=== PATIENT | female | born 1965 | race Caucasian/White ===

== ENCOUNTER 2018-02-03 18:10 | Inpatient (IN) | payer MEDICAID, OTHER ==
--- NOTE | 2018-02-03 18:50 | ED PDOC ---
Arrival/HPI - General Time Seen by Provider: 02/03/18 18:21 Historian: Patient - History of Present Illness Narrative History of Present Illness (Text): 02/03/18 18:44 52yo female with pmhx of depression, agrophobia, anxiety referred to [facility] [place] for direct admission from [place]. PAtient was seen at [place] for depression. Patient was accepted by Dr. Hastings for admission. She denies any somatic complaint in ED. Past Medical History - Provider Review Nursing Documentation Reviewed: Yes Family/Social History - Physician Review Nursing Documentation Reviewed: Yes Family/Social History: Unknown Family HX Allergies/Home Meds Allergies/Adverse Reactions: Allergies haloperidol [From Haldol] Adverse Reaction (Verified 02/03/18 20:30) FATIGUE Home Medications: Home Meds Medication Instructions Recorded Confirmed LORazepam [Ativan] 1 mg PO PRN PRN 02/03/18 02/03/18 Zolpidem [Ambien] 10 mg PO HS 02/03/18 02/03/18 clonazePAM [clonAZEPAM] 1 mg PO HS 02/03/18 02/03/18 Review of Systems - Physician Review All systems were reviewed & negative as marked: Yes - Review of Systems Constitutional: Normal Eyes: Normal ENT: Normal Respiratory: Normal Cardiovascular: Normal Gastrointestinal: Normal Genitourinary Female: Normal Musculoskeletal: Normal Skin: Normal Neurological: Normal Endocrine: Normal Hemo/Lymphatic: Normal Psychiatric: Depression Physical Exam Vital Signs Reviewed: Yes Vital Signs Temp Pulse Resp BP Pulse Ox 02/03/18 19:34 80 18 145/84 99 02/03/18 18:45 97.4 F L 81 17 152/98 H 97 Temperature: Afebrile Blood Pressure: Normal Pulse: Regular Respiratory Rate: Normal Appearance: Positive for: Well-Appearing, Non-Toxic, Comfortable Pain Distress: None Mental Status: Positive for: Alert and Oriented X 3 - Systems Exam Head: Present: Atraumatic, Normocephalic Pupils: Present: PERRL Extroacular Muscles: Present: EOMI Conjunctiva: Present: Normal Mouth: Present: Moist Mucous Membranes Neck: Present: Normal Range of Motion Respiratory/Chest: Present: Clear to Auscultation, Good Air Exchange. No: Respiratory Distress, Accessory Muscle Use Cardiovascular: Present: Regular Rate and Rhythm, Normal S1, S2. No: Murmurs Abdomen: No: Tenderness, Distention, Peritoneal Signs Back: Present: Normal Inspection Upper Extremity: Present: Normal Inspection. No: Cyanosis, Edema Lower Extremity: Present: Normal Inspection. No: Edema Neurological: Present: GCS=15, CN II-XII Intact, Speech Normal Skin: Present: Warm, Dry, Normal Color. No: Rashes Psychiatric: Present: Alert, Oriented x 3, Normal Insight, Normal Concentration Medical Decision Making ED Course and Treatment: 02/04/18 01:04 PT was a directed admission for depression, accepted by Dr. Hastings. Her chart was reviewed and per the chart, pt declined chest xray. She denied any somatic complaint in ED and was admitted to Dr. Hastings's service. - Medication Orders Current Medication Orders: Acetaminophen (Tylenol 325mg Tab) 650 mg PO Q4 PRN PRN Reason: Pain, moderate (4-7) Al Hydrox/Mg Hydrox/Simethicone (Maalox Plus 30 Ml) 30 ml PO DAILY PRN PRN Reason: Upset Stomach Clonazepam (Klonopin) 0.5 mg PO TID ASHLEY PRN Reason: Protocol Lorazepam (Ativan) 2 mg PO Q8 PRN; Protocol PRN Reason: severe agitation Last Admin: 02/03/18 21:30 Dose: 2 mg Behavioural Document 02/03/18 21:30 WP (Rec: 02/03/18 21:31 WP [id number]) Maintenance Maintenance Dose Yes Re-Assess: Reassess Psych Meds Document 02/03/18 22:30 WP (Rec: 02/03/18 23:49 WP [id number]) Reassess Psych Med Effective Lorazepam (Ativan) 2 mg IM Q8 PRN; Protocol PRN Reason: Anxiety Magnesium Hydroxide (Milk Of Magnesia) 30 ml PO DAILY PRN PRN Reason: Constipation Zaleplon (Sonata) 5 mg PO HS PRN PRN Reason: Insomnia Ziprasidone (Geodon Cap) 20 mg PO Q8 PRN; Protocol PRN Reason: Anxiety Ziprasidone (Geodon Inj) 20 mg IM Q8 PRN; Protocol PRN Reason: severe agitation Discontinued Medications Zolpidem Tartrate (Ambien) 10 mg PO ONCE ONE PRN Reason: Protocol Stop: 02/03/18 22:01 Last Admin: 02/03/18 21:30 Dose: 10 mg Behavioural Document 02/03/18 21:30 WP (Rec: 02/03/18 21:30 WP [id number]) Maintenance Maintenance Dose Yes Re-Assess: Reassess Psych Meds Document 02/03/18 22:30 WP (Rec: 02/03/18 23:49 WP [id number]) Reassess Psych Med Effective Disposition/Present on Arrival - Present on Arrival Any Indicators Present on Arrival: No History of DVT/PE: No History of Uncontrolled Diabetes: No Urinary Catheter: No History of Decub. Ulcer: No History Surgical Site Infection Following: None - Disposition Have Diagnosis and Disposition been Completed?: Yes Diagnosis: Depression Disposition: HOSPITALIZED Disposition Time: 18:50 Patient Plan: Admission Patient Problems: Current Active Problems Problem Status Onset Depression Acute Condition: STABLE
[2018-02-03] MEDS ORDERED: Alum-Mag Hydrox-Simethicone Susp (30 mL) PO PRN (20:39)
[2018-02-03] MEDS ORDERED: Magnesium Hydroxide Susp 30 ml UD PO PRN (20:39)
[2018-02-03 21:49] VITALS: O2SAT 97; BMI 25.0
--- NOTE | 2018-02-04 02:58 | PCM.BM ---
<Maggie Palomino - Last Filed: 02/04/18 02:56> Treatment Plan Problems - Problems identified on initial assessmt Anxiety Date Initiated: 02/03/18 Time Initiated: 20:00 Assessment reference: NA Status: Active Panic Attack Date Initiated: 02/03/18 Time Initiated: 20:00 Assessment reference: NA Status: Active Priority: 2 Altered Sleep Patterns Date Initiated: 02/03/18 Time Initiated: 20:00 Assessment reference: NA Status: Active Priority: 3 Treatment assets and liabiliti Patient Assests: self-reliant, ADL independent - Milieu Protocol Maintain good personal hygiene: daily Encourage regular showers, daily Remind patient to perform daily oral care, daily Assist patient to perform ADL's Conduct patient checks and document Observation sheet: Q15 minutes Maintain personal safety: every shift Educate patient to report safety concerns to staff, every shift Monitor environment for contraband/sharps Medication safety: Monitor for expected outcome, potential side effects: every shift, Assess barriers to learning: every shift, Assess readiness for medication education: every shift Discharge/Continuing Care - Education Needs Education Needs: Patient Medication, Patient Diagnosis/Disease Process, Patient Coping Skills, Patient Community resources - Discharge Discharge Criteria: Tolerates medication w/o severe side effects, Free of paranoid thoughts, Normal sleep pattern, Ability to care for self <Darling Quintero - Last Filed: 02/04/18 09:03> - Diagnosis (1) MDD (major depressive disorder) Status: Acute Interventions: 02/04/18 09:03 Psychoeducation Psychopharmacology/adjustment of medications as needed/ monitoring possible side effects Evaluate pt on daily basis Compliance with medications and follow up appointments Suicide and homicide risk assessment and prevention Relapse prevention Reduction of symptoms Improve functional status Family involvement As outpatient: cognitive behavioral therapy (2) Panic disorder with agoraphobia Status: Acute Interventions: 02/04/18 09:03 Psychoeducation Psychopharmacology/adjustment of medications as needed/ monitoring possible side effects Evaluate pt on daily basis Discussion of importance of being compliant with medications and follow up appointments Suicide and homicide risk assessment and prevention, coping strategies, safety plan Reduction of symptoms Relaxation techniques and breathing exercises Improve functional status Family involvement Cognitive behavioral therapy as outpatient <Rut Vega Y - Last Filed: 02/04/18 17:25> Family Contact Family involvement: Family/SO is involved Family contact: Patient agrees to contact Family contacted how many times per week?: 2 <Fannie Simpson - Last Filed: 02/07/18 15:45>
[2018-02-04 07:31] LABS: GLUCOSE,FASTING 89 mg/dL (65-110); HDL CHOLESTEROL 39 mg/dL (29-60)
[2018-02-04 07:42] LABS: LDL CHOLESTEROL 170 mg/dL (0-129)
--- NOTE | 2018-02-04 12:46 | CP.PCM.CON ---
History of Present Illness - History of Present Illness History of Present Illness: Babatunde Erickson PGY2 - Neurology Consult Note for Dr. Levi CC: Headache, confusion HPI: Patient is a 52 year old female with past medical history of fibromyalgia, chronic migraine, depression, anxiety who is admitted to inpatient psychiatric unit for depression. Patient admits to having constant headache for the past few weeks. She indicates headache is rated as 10/10. She describes a left temporal pain sensation with radiation to her left shoulder with associated symptoms of nausea, photophobia, sensitivity to sound, occasional blurry vision. Denies loss of vision, weakness, focal deficits, severe worse headache of life symptomology. Patient denies trauma, previous trauma or seizure like activity ever in her past. Patient admits to chronic history of migraines with past usage of Imitrix. 12 point ROS benign other than mentioned in HPI. Review of Systems - Review of Systems All systems: reviewed and no additional remarkable complaints except (as mentioned in HPI) Past Patient History - Infectious Disease Hx of Infectious Diseases: None - Past Social History Smoking Status: Never Smoked Alcohol: None Drugs: Denies - MUSCULOSKELETAL/RHEUMATOLOGICAL Hx Arthritis: Yes - PSYCHIATRIC Hx Substance Use: Yes (medical marijuana) - ANESTHESIA Hx Anesthesia: No Meds Allergies/Adverse Reactions: Allergies Allergy/AdvReac Type Severity Reaction Status Date / Time haloperidol [From Haldol] AdvReac FATIGUE Verified 02/03/18 20:30 - Medications Medications: Current Medications Acetaminophen (Tylenol 325mg Tab) 650 mg PO Q4 PRN PRN Reason: Pain, moderate (4-7) Last Admin: 02/04/18 03:12 Dose: 650 mg Al Hydrox/Mg Hydrox/Simethicone (Maalox Plus 30 Ml) 30 ml PO DAILY PRN PRN Reason: Upset Stomach Duloxetine HCl (Cymbalta) 20 mg PO DAILY ASHLEY Gabapentin (Neurontin) 100 mg PO TID ASHLEY PRN Reason: Protocol Lorazepam (Ativan) 2 mg PO Q8 PRN; Protocol PRN Reason: severe agitation Last Admin: 02/03/18 21:30 Dose: 2 mg Lorazepam (Ativan) 2 mg IM Q8 PRN; Protocol PRN Reason: Anxiety Lorazepam (Ativan) 1 mg PO TID ASHLEY PRN Reason: Protocol Magnesium Hydroxide (Milk Of Magnesia) 30 ml PO DAILY PRN PRN Reason: Constipation Sumatriptan Succinate (Imitrex Tab) 100 mg PO MWF ASHLEY Ziprasidone (Geodon Cap) 20 mg PO Q8 PRN; Protocol PRN Reason: Anxiety Ziprasidone (Geodon Inj) 20 mg IM Q8 PRN; Protocol PRN Reason: severe agitation Physical Exam - Constitutional Appears: No Acute Distress, Unkempt, Older Than Stated Age - Head Exam Head Exam: ATRAUMATIC, NORMAL INSPECTION, NORMOCEPHALIC - Eye Exam Eye Exam: EOMI, PERRL. absent: Nystagmus, Scleral icterus Pupil Exam: absent: Fixed, Irregular, Unequal - ENT Exam ENT Exam: Mucous Membranes Moist - Neck Exam Neck exam: Positive for: Full Rom - Respiratory Exam Respiratory Exam: Clear to Auscultation Bilateral, NORMAL BREATHING PATTERN - Cardiovascular Exam Cardiovascular Exam: REGULAR RHYTHM, +S1, +S2 - GI/Abdominal Exam GI & Abdominal Exam: Normal Bowel Sounds, Soft - Extremities Exam Extremities exam: Negative for: pedal edema, tenderness - Neurological Exam Neurological exam: Alert, CN II-XII Intact, Oriented x3 Additional comments: AAOx3, clear speech visual acuity, field intact Coordination intact, no dysmetria no ataxia, no drift, negative rhomberg Reflexes 2/4 in all four extremities bilaterally - Psychiatric Exam Psychiatric exam: Depressed, Flat Affect - Skin Skin Exam: Dry, Intact Results - Vital Signs Recent Vital Signs: Last Vital Signs Temp 97.7 F 02/04/18 07:05 Pulse 75 02/04/18 07:05 Resp 20 02/04/18 07:05 BP 117/80 02/04/18 07:05 Pulse Ox 97 02/03/18 20:00 - Labs Labs: Laboratory Results - last 24 hr 02/04/18 02/04/18 06:40 06:40 Fasting Glucose 89 Triglycerides 163 H Cholesterol 265 H LDL Cholesterol Direct 170 H HDL Cholesterol 39 TSH 3rd Generation 2.23 Assessment & Plan - Assessment and Plan (Free Text) Assessment: Patient is a 52 year old female with past medical history of fibromyalgia, chronic migraine, depression, anxiety who is admitted to inpatient psychiatric unit for depression. Patient complaining of few week history of headache Plan: Migraine - Chronic migraine history, patient with complaints of some blurry vision, visual vaughan intact - Imitrex 100mg MWF, avoid daily usage secondary to vasodilatory effect - Flexeril 5mg once for tension of left neck/shoulder muscles - ESR, CRP for blurry vision and evaluation of temporal arteritis - Further recs per Dr. Levi Patient examined and case and plan discussed with attending, Dr. Gumreet Erickson PGY2 - Date & Time Date: 02/04/18 Time: 12:46
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
--- NOTE | 2018-02-05 10:19 | PCM.PYCHPN ---
Psychiatric Progress Note - Psychiatric Progress Note Patient seen today, length of contact: 25 min Problems Identified/Issues Discussed: I reviewed assessment and recent notes. I met with patient multiple times this morning. She appears anxious and unhappy. Reports that she is "very very depressed" and feels likes she is "losing my mind" because she hasn't been able to sleep. Patient indicates that her roommate has been disruptive and noisy overnight. Patient remains somatic and reports getting medical marijuana prescribed for her pain and nausea. She inquires about tramadol again. Patient is tolerating her current medications however requests seroquel for insomnia, anxiety and mood control as it has been beneficial in the past. Thought somatic, patient denies any NEW discomfort or pain at this time. Patient has been isolative and spends most of her time in her room. She does not social with other patients, she spends most of her focus on complaints. Patient remains unpredictable. Diagnostic Results: rule out major depressive disorder Rule out panic disorder with agoraphobia Rule out borderline personality disorder Rule out fibromyalgia Rule out addition to benzodiazepines and hypnotics Medication Change: Yes (seroquel 25 mg po HS initiated for mood control) Medical Record Reviewed: Yes Mental Status Examination - Cognitive Function Orientation: Person - Mood Mood: Depressed, Anxious - Affect Affect: Constricted, Flat - Formal Thought Process Formal Thought Process: Circumstantial Goal/Treatment Plan - Goal/Treatment Plan Progress Toward Problem(s) and Goals/Treatment Plan: - * c/w current tx and plan * Medical consultation for complaints of pain * seroquel 25 mg po HS initiated for mood control and off-label for insomnia * New weekend lab noted below: 02/05/18 07:40 ESR 13 * Vitals reviewed and noted below: Selected Entries 02/05/18 06:46 Temperature 98.0 F Pulse Rate 67 Respiratory 20 Rate Blood Pressure 102/58 L * Ativan 1 mg 3 times a day scheduled with plan to wean it off
--- NOTE | 2018-02-06 10:02 | PCM.PYCHPN ---
Psychiatric Progress Note - Psychiatric Progress Note Patient seen today, length of contact: 25 min Patient Chief Complaint: "very very depressed" Problems Identified/Issues Discussed: I reviewed recent notes and met with patient at bedside. She is a little calmer today but still can be dramatic about her mental and physical distress. She appears anxious and unhappy but doesn't appear to be in acute physical discomfort. Still reports that she is "very very depressed". Thought process is scattered but not overly disorganized. Denies perceptual disturbance. Patient is tolerating her current medications. Sleep was still restless sleep s/ p initiation of seroquel yesterday for insomnia, anxiety and mood control. Patient has been a little more visible on the unit but not very interactive. There were no major behavioral issues overnight. Diagnostic Results: rule out major depressive disorder Rule out panic disorder with agoraphobia Rule out borderline personality disorder Rule out fibromyalgia Rule out addition to benzodiazepines and hypnotics Medication Change: Yes (Seroquel increased to 50 mg HS) Medical Record Reviewed: Yes Mental Status Examination - Cognitive Function Orientation: Person, Place Attention: Poor Concentration: Poor Association: Loose - Mood Mood: Depressed, Anxious - Affect Affect: Constricted, Flat - Formal Thought Process Formal Thought Process: Circumstantial - Suicidal Ideation Suicidal Ideation: No - Homicidal Ideation Homicidal Ideation: No Goal/Treatment Plan - Goal/Treatment Plan Progress Toward Problem(s) and Goals/Treatment Plan: - * c/w current tx and plan * Medical consultation requested for complaints of pain * Seroquel increased to 50 mg po HS on 02/06/18 for mood control and off-label for insomnia * New weekend lab noted below: 02/05/18 07:40 ESR 13 * Vitals reviewed and noted below: 02/05/18 02/05/18 06:46 16:00 Temperature 98.0 F Pulse Rate 67 66 Respiratory 20 Rate Blood Pressure 102/58 L 118/81 * Ativan 1 mg 3 times a day scheduled with plan to wean it off as patient's mood and behavior become calmer and more stable
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
--- NOTE | 2018-02-08 11:31 | PCM.PYCHPN ---
<Caity Contreras - Last Filed: 02/08/18 13:11> Psychiatric Progress Note - Psychiatric Progress Note Patient seen today, length of contact: 30 min Patient Chief Complaint: Im still very anxious. I feel groggy, too much Ambien. I also feel nausea. Problems Identified/Issues Discussed: Suicide/ homicide prevention, past psychiatric h/o, current psychiatric symptoms , medical problems, risk/benefits and alternatives of medications, medications compliance, coping strategies, substance abuse h/o, relapse prevention, importance of follow up with psychiatrist and therapist, discharge plan. Medical Problems: Patient has many somatic complaints, including hip pain, headache, and GI upset. ?psoriatic arthritis h/o trigeminal neuralgia Diagnostic Results: Vital Signs Temp Pulse Resp BP Pulse Ox 02/07/18 07:43 97.5 F L 69 20 111/58 L 02/06/18 16:14 81 114/74 02/06/18 07:51 97.9 F 77 20 93/61 L 02/06/18 07:47 97.9 F 77 20 02/05/18 16:00 66 118/81 02/05/18 06:46 98.0 F 67 20 102/58 L 02/04/18 16:00 73 125/79 02/04/18 07:05 97.7 F 75 20 117/80 02/03/18 20:00 98.4 F 80 18 147/100 H 97 02/03/18 19:34 80 18 145/84 99 02/03/18 18:45 97.4 F L 81 17 152/98 H 97 Lab Results 02/05/18 12:35: POC Glucose (mg/dL) 97 02/05/18 07:40: ESR 13 02/04/18 11:15: C-Reactive Protein 5.10 02/04/18 06:40: RPR Nonreactive 02/04/18 06:40: TSH 3rd Generation 2.23 02/04/18 06:40: Fasting Glucose 89, Triglycerides 163 H, Cholesterol 265 H, LDL Cholesterol Direct 170 H, HDL Cholesterol 39 DSM 5 Symptoms Update: Shirley Schumacher is 52 y/o Irish female with a questionable history of mental illness, self-reported history of anxiety with agoraphobia, who came to the hospital with her reporting having feelings of depression, loneliness, inability to function, worsening of anxiety. 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 Patient is seen in the dining room. She speaks with a soft, low tone voice. She is complaining of grogginess. She still appears disheveled with poor grooming. She reports her came to visit her, but she does not have any details. She says she still feels confused and anxious. She has attended some groups with minimal active participation. She is still isolating in her bed most of the day. At times, she is seen pacing slowly in the hallways. She continues to have a very flat affect. She does not have as many somatic complaints as from when she was first admitted. The patient is compliant with her medications and is tolerating them well without any side effects. She is able to contract for safety and denies SI. Patient was encouraged to get out of room and attempt to occupy her mind. Medication Change: Yes (decreased Ambien, increased Seroquel, increased Cymbalta ) Medical Record Reviewed: Yes Consults ordered or reviewed: neurology Mental Status Examination - Cognitive Function Orientation: Person, Place, Situation, Time Memory: Intact Attention: Poor Concentration: Poor Association: Loose Fund of Knowledge: Poor Decription of patient's judgement and insights: fair insight and judgment - Mood Mood: Depressed, Anxious - Affect Affect: Constricted, Flat - Speech Speech: Soft - Formal Thought Process Formal Thought Process: Circumstantial (provides unnecessary details) - Suicidal Ideation Suicidal Ideation: No - Homicidal Ideation Homicidal Ideation: No Goal/Treatment Plan - Goal/Treatment Plan Need for Continued Stay: Remain at risks for inpatient hospitalization, Severe depression anxiety, Discharge may exacerbated symptoms, Severe functional impairment Progress Toward Problem(s) and Goals/Treatment Plan: 1. Cymbalta 50 mg daily for mood, anxiety, and pain 2. Ativan 1 mg tid for anxiety and withdrawal 3. Gabapentin 300 mg tid for mood and anxiety 4. Seroquel 100 mg qhs for mood and sleep 5. Geodon 20 mg q8hrs prn for anxiety/agitation- patient has not required 6. Ambien 5 mg qhs prn for sleep 7. Neurology consult for headache, confusion - Flexeril once - Sumatriptan 100 mg 3x/day - ESR 13, CRP 5.1 (wnl)- r/o temporal arteritis Milieu and group therapy Family involvement () SW consult for discharge planning Estimated Date of D/C: 02/11/18 (will continue to monitor) - Smoking Cessation Smoking Cessation Initiated: No Reason for not providing: Patient denies tobacco use. <Darling Quintero - Last Filed: 02/08/18 13:59> Psychiatric Progress Note - Psychiatric Progress Note DSM 5 Symptoms Update: pt was seen today discussed with Chief Nurse Anesthetist and treatment team, self isolating, nonspecific complaints "I am scared, that it is too late for me to get better", pt said that "I feel my brain is not functioning", pt is afraid that she will never get better. pt agreed to increase dose of cymbalta, seroquel increased. patient tolerates medication well, no side effects observed or reported, AIMS 0 , no EPS. as per staff pt is depressed, not agitated or aggressive. impression: DSM 5 Diagnosis: rule out major depressive disorder Rule out panic disorder with agoraphobia Rule out borderline personality disorder Rule out fibromyalgia Rule out addition to benzodiazepines and hypnotics Goal/Treatment Plan - Goal/Treatment Plan Progress Toward Problem(s) and Goals/Treatment Plan: gabapentin d/c agree with assessment and plan
--- NOTE | 2018-02-09 13:28 | PCM.PYCHPN ---
<Caity Contreras - Last Filed: 02/09/18 13:29> Psychiatric Progress Note - Psychiatric Progress Note Patient seen today, length of contact: 30 min Patient Chief Complaint: I still dont feel good. Its like Im detached, and its scary. My heart and mind. Its like physical but really mental. Its like I cannot connect. Problems Identified/Issues Discussed: Suicide/ homicide prevention, past psychiatric h/o, current psychiatric symptoms , medical problems, risk/benefits and alternatives of medications, medications compliance, coping strategies, substance abuse h/o, relapse prevention, importance of follow up with psychiatrist and therapist, discharge plan. Medical Problems: Patient has many somatic complaints, including hip pain, headache, and GI upset. ?psoriatic arthritis h/o trigeminal neuralgia Diagnostic Results: Vital Signs Temp Pulse Resp BP Pulse Ox 02/07/18 07:43 97.5 F L 69 20 111/58 L 02/06/18 16:14 81 114/74 02/06/18 07:51 97.9 F 77 20 93/61 L 02/06/18 07:47 97.9 F 77 20 02/05/18 16:00 66 118/81 02/05/18 06:46 98.0 F 67 20 102/58 L 02/04/18 16:00 73 125/79 02/04/18 07:05 97.7 F 75 20 117/80 02/03/18 20:00 98.4 F 80 18 147/100 H 97 02/03/18 19:34 80 18 145/84 99 02/03/18 18:45 97.4 F L 81 17 152/98 H 97 Lab Results 02/05/18 12:35: POC Glucose (mg/dL) 97 02/05/18 07:40: ESR 13 02/04/18 11:15: C-Reactive Protein 5.10 02/04/18 06:40: RPR Nonreactive 02/04/18 06:40: TSH 3rd Generation 2.23 02/04/18 06:40: Fasting Glucose 89, Triglycerides 163 H, Cholesterol 265 H, LDL Cholesterol Direct 170 H, HDL Cholesterol 39 Temp Pulse Resp BP Pulse Ox 97.8 F 64 20 111/71 97 02/09/18 07:13 02/09/18 07:13 02/09/18 07:13 02/09/18 07:13 02/03/18 20:00 DSM 5 Symptoms Update: Shirley Schumacher is 52 y/o [place] female with a questionable history of mental illness, self-reported history of anxiety with agoraphobia, who came to the hospital with her reporting having feelings of depression, loneliness, inability to function, worsening of anxiety. 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 Patient is seen in the conference room with SW. She speaks with a soft, low tone voice. She has a very flat affect. She still appears disheveled with poor grooming- hospital gown, unwashed hair. She reports yesterday was ok, but today she is feeling badly again. She has difficulty describing what she is feeling. She says she is anxious and feels detached. She asks for more Ambien, but it was explained to her that the dose was decreased due to her feeling groggy the day prior. Discussed having a family meeting with the patients , and she is agreeable. She has attended some groups with minimal active participation. She is still isolating in her room. At times, she is seen pacing slowly in the hallways. The patient is compliant with her medications and is tolerating them well without any side effects. She is able to contract for safety and denies SI. Impression: Rule out addiction to benzodiazepines and hypnotics Rule out major depressive disorder Rule out panic disorder with agoraphobia Rule out borderline personality disorder Rule out fibromyalgia Medication Change: Yes (added Wellbutrin, increased Seroquel) Medical Record Reviewed: Yes Consults ordered or reviewed: neurology Mental Status Examination - Cognitive Function Orientation: Person, Place, Situation, Time Memory: Intact Attention: Poor Concentration: Poor Association: Loose Fund of Knowledge: Poor Decription of patient's judgement and insights: fair insight and judgment - Mood Mood: Depressed, Anxious - Affect Affect: Constricted, Flat - Speech Speech: Soft - Formal Thought Process Formal Thought Process: Loosening of associations, Circumstantial - Suicidal Ideation Suicidal Ideation: No - Homicidal Ideation Homicidal Ideation: No Goal/Treatment Plan - Goal/Treatment Plan Need for Continued Stay: Remain at risks for inpatient hospitalization, Severe depression anxiety, Discharge may exacerbated symptoms, Severe functional impairment Progress Toward Problem(s) and Goals/Treatment Plan: 1. Cymbalta 50 mg daily for mood, anxiety, and pain 2. Ativan 1 mg tid for anxiety and withdrawal 3. Wellbutrin 75 mg daily for depression 4. Gabapentin 300 mg tid for mood and anxiety 5. Seroquel 150 mg qhs for mood and sleep 6. Geodon 20 mg q8hrs prn for anxiety/agitation- patient has not required 7. Ambien 5 mg qhs prn for sleep- requires daily 8. Neurology consult for headache, confusion- signed off - Flexeril once - Sumatriptan 100 mg 3x/day - ESR 13, CRP 5.1 (wnl)- r/o temporal arteritis Milieu and group therapy Family involvement ()- tentative family meeting next 02/15 consult for discharge planning Estimated Date of D/C: 02/16/18 If changed, why: multiple medication changes, continuing to monitor - Smoking Cessation Smoking Cessation Initiated: No Reason for not providing: Patient denies tobacco use. <Darling Quintero - Last Filed: 02/09/18 15:11> Psychiatric Progress Note - Psychiatric Progress Note DSM 5 Symptoms Update: patient was seen with international relations teacher, increasing up with assessment and plan Goal/Treatment Plan - Goal/Treatment Plan Progress Toward Problem(s) and Goals/Treatment Plan: agreed with assessment and plan
--- NOTE | 2018-02-10 15:10 | PCM.PYCHPN ---
Psychiatric Progress Note - Psychiatric Progress Note Patient seen today, length of contact: 30 min Patient Chief Complaint: ""oh, my knees are hurting, it is like a devil, can you increase my ambien?". Problems Identified/Issues Discussed: Suicide/ homicide prevention, past psychiatric h/o, current psychiatric symptoms , medical problems, risk/benefits and alternatives of medications, medications compliance, coping strategies, substance abuse h/o, relapse prevention, importance of follow up with psychiatrist and therapist, discharge plan. Medical Problems: see HPI Diagnostic Results: Lab Results 02/05/18 12:35: POC Glucose (mg/dL) 97 02/05/18 07:40: ESR 13 02/04/18 11:15: C-Reactive Protein 5.10 02/04/18 06:40: RPR Nonreactive 02/04/18 06:40: TSH 3rd Generation 2.23 02/04/18 06:40: Fasting Glucose 89, Triglycerides 163 H, Cholesterol 265 H, LDL Cholesterol Direct 170 H, HDL Cholesterol 39 Vital Signs Temp Pulse Resp BP Pulse Ox 02/10/18 13:05 97.4 F L 02/10/18 07:11 97.7 F 55 L 20 91/56 L 02/09/18 16:00 56 L 126/83 02/09/18 07:13 97.8 F 64 20 111/71 02/08/18 16:00 68 123/78 02/08/18 07:04 97.9 F 64 18 115/77 02/07/18 07:43 97.5 F L 69 20 111/58 L 02/06/18 16:14 81 114/74 02/06/18 07:51 97.9 F 77 20 93/61 L 02/06/18 07:47 97.9 F 77 20 02/05/18 16:00 66 118/81 02/05/18 06:46 98.0 F 67 20 102/58 L 02/04/18 16:00 73 125/79 02/04/18 07:05 97.7 F 75 20 117/80 02/03/18 20:00 98.4 F 80 18 147/100 H 97 02/03/18 19:34 80 18 145/84 99 02/03/18 18:45 97.4 F L 81 17 152/98 H 97 DSM 5 Symptoms Update: Shirley Schumacher is 52 y/o [place] female with a questionable history of mental illness, self-reported history of anxiety with agoraphobia, who came to the hospital with her reporting having feelings of depression, loneliness, inability to function, worsening of anxiety. 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 Patient is seen in the hallway together with medical student. She speaks with a soft, low tone voice. She has a very flat affect, but some positive changes with hygiene, pt washed her hair, has some lip gloss, ponytail, pt was observed participating in groups. pt still has multiple psychosomatic complaints, pt said that "oh, my knees are hurting, it is like a devil, can you increase my ambien?". She has difficulty describing what she is feeling. She says she is anxious and feels detached. Discussed having a family meeting with the patients , and she is agreeable. as per staff pt is more visible in the unit. The patient is compliant with her medications and is tolerating them well without any side effects AIMS 0, no EPS. She is able to contract for safety and denies SI but reported feeling of hopelessness "I am afraid that I will never get better". Impression: Rule out addiction to benzodiazepines and hypnotics Rule out major depressive disorder Rule out panic disorder with agoraphobia Rule out borderline personality disorder Rule out fibromyalgia Medication Change: Yes (Wellbutrin increased,Cymbalta increased) Medical Record Reviewed: Yes Consults ordered or reviewed: patient was seen by neurologist, consultation appreciated Mental Status Examination - Cognitive Function Orientation: Person, Place, Situation, Time Memory: Intact Attention: Poor Concentration: Poor Association: Loose Fund of Knowledge: Poor - Mood Mood: Depressed, Anxious - Affect Affect: Constricted, Flat - Speech Speech: Soft - Formal Thought Process Formal Thought Process: Loosening of associations, Circumstantial, Other (pt has fdifficulties to stay focused and concentrate) - Suicidal Ideation Suicidal Ideation: No - Homicidal Ideation Homicidal Ideation: No Goal/Treatment Plan - Goal/Treatment Plan Need for Continued Stay: Remain at risks for inpatient hospitalization, Severe depression anxiety, Discharge may exacerbated symptoms, Severe functional impairment Progress Toward Problem(s) and Goals/Treatment Plan: 1. Cymbalta 30mg po bid for mood, anxiety, and pain 2. Ativan 1 mg tid for anxiety and withdrawal 3. Wellbutrin 75 mg po bid for depression 4. Gabapentin was d/c 5. Seroquel 150 mg qhs for mood and sleep 6. Geodon 20 mg q8hrs prn for anxiety/agitation- patient has not required 7. Ambien 10 mg qhs prn for sleep- requires daily 8. Neurology consult for headache, confusion- signed off - Flexeril once - Sumatriptan 100 mg 3x/day - ESR 13, CRP 5.1 (wnl)- r/o temporal arteritis Milieu and group therapy Family involvement ()- tentative family meeting next 02/15 ANANTH consult for discharge planning Estimated Date of D/C: 02/16/18
--- NOTE | 2018-02-11 14:00 | PCM.PYCHPN ---
Psychiatric Progress Note - Psychiatric Progress Note Patient seen today, length of contact: 30 min Patient Chief Complaint: "I had a good day yesterday, but I am always hungry, can you decrease my seroquel?" Problems Identified/Issues Discussed: Suicide/ homicide prevention, past psychiatric h/o, current psychiatric symptoms , medical problems, risk/benefits and alternatives of medications, medications compliance, coping strategies, substance abuse h/o, relapse prevention, importance of follow up with psychiatrist and therapist, discharge plan. Medical Problems: see HPI Diagnostic Results: Lab Results 02/05/18 12:35: POC Glucose (mg/dL) 97 02/05/18 07:40: ESR 13 02/04/18 11:15: C-Reactive Protein 5.10 02/04/18 06:40: RPR Nonreactive 02/04/18 06:40: TSH 3rd Generation 2.23 02/04/18 06:40: Fasting Glucose 89, Triglycerides 163 H, Cholesterol 265 H, LDL Cholesterol Direct 170 H, HDL Cholesterol 39 Vital Signs Temp Pulse Resp BP Pulse Ox 02/10/18 13:05 97.4 F L 02/10/18 07:11 97.7 F 55 L 20 91/56 L 02/09/18 16:00 56 L 126/83 02/09/18 07:13 97.8 F 64 20 111/71 02/08/18 16:00 68 123/78 02/08/18 07:04 97.9 F 64 18 115/77 02/07/18 07:43 97.5 F L 69 20 111/58 L 02/06/18 16:14 81 114/74 02/06/18 07:51 97.9 F 77 20 93/61 L 02/06/18 07:47 97.9 F 77 20 02/05/18 16:00 66 118/81 02/05/18 06:46 98.0 F 67 20 102/58 L 02/04/18 16:00 73 125/79 02/04/18 07:05 97.7 F 75 20 117/80 02/03/18 20:00 98.4 F 80 18 147/100 H 97 02/03/18 19:34 80 18 145/84 99 02/03/18 18:45 97.4 F L 81 17 152/98 H 97 DSM 5 Symptoms Update: Shirley Ciamaga is 52 y/o [place]ames[place] female with a questionable history of mental illness, self-reported history of anxiety with agoraphobia, who came to the hospital with her reporting having feelings of depression, loneliness, inability to function, worsening of anxiety. 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 Patient is seen at the treatment team meeting, patient presented with same unspecific complaints "pain all over my body", pt said that "yesterday was a good day", pt reported that her mood is "better", when pt is making positive statements it is always "yes, but I have pain", "yes I feel better yesterday, but I was feeing not good at the morning". She speaks with a soft, low tone voice. She has a very flat affect, but some positive changes with hygiene, pt washed her hair, has some lip gloss, ponytail, pt was observed participating in groups. She has difficulty describing what she is feeling. She says she is anxious and feels detached. Discussed having a family meeting with the patients , and she is agreeable. as per staff pt is more visible in the unit. The patient is compliant with her medications and is tolerating them well without any side effects AIMS 0, no EPS. She is able to contract for safety and denies SI but reported feeling of hopelessness "I am afraid that I will never get better". Impression: Rule out addiction to benzodiazepines and hypnotics Rule out major depressive disorder Rule out panic disorder with agoraphobia Rule out borderline personality disorder Rule out fibromyalgia Medication Change: Yes (Wellbutrin increased,Cymbalta increased) Medical Record Reviewed: Yes Mental Status Examination - Cognitive Function Orientation: Person, Place, Situation, Time Memory: Intact Attention: Poor (some improvement) Concentration: Poor (some improvement) Association: WNL Fund of Knowledge: Poor - Mood Mood: Depressed (some improvement), Anxious - Affect Affect: Constricted - Speech Speech: Soft - Formal Thought Process Formal Thought Process: Loosening of associations, Circumstantial, Other (pt has fdifficulties to stay focused and concentrate) - Suicidal Ideation Suicidal Ideation: No - Homicidal Ideation Homicidal Ideation: No Goal/Treatment Plan - Goal/Treatment Plan Need for Continued Stay: Remain at risks for inpatient hospitalization, Severe depression anxiety, Discharge may exacerbated symptoms, Severe functional impairment Progress Toward Problem(s) and Goals/Treatment Plan: 1. Cymbalta 30mg po bid for mood, anxiety, and pain 2. Ativan 1 mg tid for anxiety and withdrawal 3. Wellbutrin 75 mg po bid for depression 4. Gabapentin was d/c 5. Seroquel 100 mg qhs for mood and sleep 6. Geodon 20 mg q8hrs prn for anxiety/agitation- patient has not required 7. Ambien 10 mg qhs prn for sleep- requires daily 8. Neurology consult for headache, confusion- signed off - Flexeril once - Sumatriptan 100 mg 3x/day - ESR 13, CRP 5.1 (wnl)- r/o temporal arteritis Milieu and group therapy Family involvement ()- tentative family meeting next 02/15 consult for discharge planning Pt was educated about risk/benefits and alternatives of medications, coping strategies (safety plan, suicide prevention), relapse prevention, importance of follow up with psychiatrist and therapist, stay away from drugs/alcohol/smoking Estimated Date of D/C: 02/16/18
[2018-02-12] MEDS: Pantoprazole 20 mg EC Tab PO SCH (09:02)
--- NOTE | 2018-02-12 12:58 | PCM.PYCHPN ---
Psychiatric Progress Note - Psychiatric Progress Note Patient seen today, length of contact: 30 min Patient Chief Complaint: "I do not know, I have some numbness all over in my body, I had that before, I also have dizziness, can you raise my ativan?" Problems Identified/Issues Discussed: Suicide/ homicide prevention, past psychiatric h/o, current psychiatric symptoms , medical problems, risk/benefits and alternatives of medications, medications compliance, coping strategies, substance abuse h/o, relapse prevention, importance of follow up with psychiatrist and therapist, discharge plan. Medical Problems: see HPI Diagnostic Results: Lab Results 02/05/18 12:35: POC Glucose (mg/dL) 97 02/05/18 07:40: ESR 13 02/04/18 11:15: C-Reactive Protein 5.10 02/04/18 06:40: RPR Nonreactive 02/04/18 06:40: TSH 3rd Generation 2.23 02/04/18 06:40: Fasting Glucose 89, Triglycerides 163 H, Cholesterol 265 H, LDL Cholesterol Direct 170 H, HDL Cholesterol 39 Vital Signs Temp Pulse Resp BP Pulse Ox 02/10/18 13:05 97.4 F L 02/10/18 07:11 97.7 F 55 L 20 91/56 L 02/09/18 16:00 56 L 126/83 02/09/18 07:13 97.8 F 64 20 111/71 02/08/18 16:00 68 123/78 02/08/18 07:04 97.9 F 64 18 115/77 02/07/18 07:43 97.5 F L 69 20 111/58 L 02/06/18 16:14 81 114/74 02/06/18 07:51 97.9 F 77 20 93/61 L 02/06/18 07:47 97.9 F 77 20 02/05/18 16:00 66 118/81 02/05/18 06:46 98.0 F 67 20 102/58 L 02/04/18 16:00 73 125/79 02/04/18 07:05 97.7 F 75 20 117/80 02/03/18 20:00 98.4 F 80 18 147/100 H 97 02/03/18 19:34 80 18 145/84 99 02/03/18 18:45 97.4 F L 81 17 152/98 H 97 Temp Pulse Resp BP Pulse Ox 98.2 F 56 L 20 102/64 97 02/12/18 07:25 02/12/18 07:25 02/12/18 07:25 02/12/18 07:25 02/03/18 20:00 DSM 5 Symptoms Update: Shirley Schumacher is 52 y/o [place] female with a questionable history of mental illness, self-reported history of anxiety with agoraphobia, who came to the hospital with her reporting having feelings of depression, loneliness, inability to function, worsening of anxiety. 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 Patient is seen in her room, pt presented the same way, multiple nonspecific complaints "dizziness, hard to explain, numbness, tingling, heaviness in my head ". She speaks with a soft, low tone voice. She has a very flat affect, but some positive changes with hygiene,took a shower, pt was observed participating in groups. She has difficulty describing what she is feeling. She says she is anxious and feels detached. Discussed having a family meeting with the patients , and she is agreeable. as per staff pt is more visible in the unit. The patient is compliant with her medications and is tolerating them well without any side effects AIMS 0, no EPS. She is able to contract for safety and denies SI but reported feeling of hopelessness "I am afraid that I will never get better". Impression: Rule out addiction to benzodiazepines and hypnotics Rule out major depressive disorder Rule out panic disorder with agoraphobia Rule out borderline personality disorder Rule out fibromyalgia Medication Change: No (increased yesterday) Medical Record Reviewed: Yes Consults ordered or reviewed: patient was seen by neurologist, consultation appreciated Mental Status Examination - Cognitive Function Orientation: Person, Place, Situation, Time Memory: Intact Attention: Poor (some improvement) Concentration: Poor (some improvement) Association: WNL Fund of Knowledge: Poor - Mood Mood: Depressed (some improvement), Anxious - Affect Affect: Constricted - Speech Speech: Soft - Formal Thought Process Formal Thought Process: Loosening of associations, Circumstantial, Other (pt has fdifficulties to stay focused and concentrate) - Suicidal Ideation Suicidal Ideation: No - Homicidal Ideation Homicidal Ideation: No Goal/Treatment Plan - Goal/Treatment Plan Need for Continued Stay: Remain at risks for inpatient hospitalization, Severe depression anxiety, Discharge may exacerbated symptoms, Severe functional impairment Progress Toward Problem(s) and Goals/Treatment Plan: 1. Cymbalta 30mg po bid for mood, anxiety, and pain 2. Ativan 1 mg tid for anxiety and withdrawal 3. Wellbutrin 75 mg po bid for depression 4. Gabapentin was d/c 5. Seroquel 100 mg qhs for mood and sleep 6. Geodon 20 mg q8hrs prn for anxiety/agitation- patient has not required 7. Ambien 10 mg qhs prn for sleep- requires daily 8. Neurology consult for headache, confusion- signed off - Flexeril once - Sumatriptan 100 mg 3x/day - ESR 13, CRP 5.1 (wnl)- r/o temporal arteritis Milieu and group therapy Family involvement ()- tentative family meeting next 02/15 consult for discharge planning Pt was educated about risk/benefits and alternatives of medications, coping strategies (safety plan, suicide prevention), relapse prevention, importance of follow up with psychiatrist and therapist, stay away from drugs/alcohol/smoking Estimated Date of D/C: 02/16/18
[2018-02-13] MEDS: Pantoprazole 20 mg EC Tab PO SCH (06:00)
--- NOTE | 2018-02-13 10:20 | PCM.PYCHPN ---
Psychiatric Progress Note - Psychiatric Progress Note Patient seen today, length of contact: 30 min Patient Chief Complaint: "I do not know how do they feel yesterday, my numbness comes and goes now" Problems Identified/Issues Discussed: Suicide/ homicide prevention, past psychiatric h/o, current psychiatric symptoms , medical problems, risk/benefits and alternatives of medications, medications compliance, coping strategies, substance abuse h/o, relapse prevention, importance of follow up with psychiatrist and therapist, discharge plan. Medical Problems: see HPI Diagnostic Results: Lab Results 02/05/18 12:35: POC Glucose (mg/dL) 97 02/05/18 07:40: ESR 13 02/04/18 11:15: C-Reactive Protein 5.10 02/04/18 06:40: RPR Nonreactive 02/04/18 06:40: TSH 3rd Generation 2.23 02/04/18 06:40: Fasting Glucose 89, Triglycerides 163 H, Cholesterol 265 H, LDL Cholesterol Direct 170 H, HDL Cholesterol 39 Vital Signs Temp Pulse Resp BP Pulse Ox 02/10/18 13:05 97.4 F L 02/10/18 07:11 97.7 F 55 L 20 91/56 L 02/09/18 16:00 56 L 126/83 02/09/18 07:13 97.8 F 64 20 111/71 02/08/18 16:00 68 123/78 02/08/18 07:04 97.9 F 64 18 115/77 02/07/18 07:43 97.5 F L 69 20 111/58 L 02/06/18 16:14 81 114/74 02/06/18 07:51 97.9 F 77 20 93/61 L 02/06/18 07:47 97.9 F 77 20 02/05/18 16:00 66 118/81 02/05/18 06:46 98.0 F 67 20 102/58 L 02/04/18 16:00 73 125/79 02/04/18 07:05 97.7 F 75 20 117/80 02/03/18 20:00 98.4 F 80 18 147/100 H 97 02/03/18 19:34 80 18 145/84 99 02/03/18 18:45 97.4 F L 81 17 152/98 H 97 Temp Pulse Resp BP Pulse Ox 98.2 F 56 L 20 102/64 97 07/21/18 07:25 02/12/18 07:25 02/12/18 07:25 02/12/18 07:25 02/03/18 20:00 Temp Pulse Resp BP Pulse Ox 97.9 F 55 L 19 134/81 97 02/13/18 07:06 02/13/18 07:06 02/13/18 07:06 02/13/18 07:06 02/03/18 20:00 DSM 5 Symptoms Update: Shirley Schumacher is 52 y/o [place] female with a questionable history of mental illness, self-reported history of anxiety with agoraphobia, who came to the hospital with her reporting having feelings of depression, loneliness, inability to function, worsening of anxiety. 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 Patient is seen in her room, pt presented the same way, multiple nonspecific complaints "dizziness, hard to explain, numbness, tingling, heaviness in my head , numbness comes and goes". She speaks with a soft, low tone voice. She has a very flat affect, but some positive changes with hygiene,took a shower, pt was observed participating in groups. ppatient denied thoughts of harming herself or others but reported that she feels hopeless. "I am afraid that I will never get better" as per staff pt is more visible in the unit. The patient is compliant with her medications and is tolerating them well without any side effects AIMS 0, no EPS. Impression: Rule out addiction to benzodiazepines and hypnotics Rule out major depressive disorder Rule out panic disorder with agoraphobia Rule out borderline personality disorder Rule out fibromyalgia Medication Change: Yes (Wellbutrin as well as Cymbalta increased) Medical Record Reviewed: Yes Consults ordered or reviewed: patient was seen by neurologist, consultation appreciated Mental Status Examination - Cognitive Function Orientation: Person, Place, Situation, Time Memory: Intact Attention: Poor (some improvement) Concentration: Poor (some improvement) Association: WNL Fund of Knowledge: Poor - Mood Mood: Depressed (some improvement), Anxious - Affect Affect: Constricted - Speech Speech: Soft - Formal Thought Process Formal Thought Process: Loosening of associations, Circumstantial, Other (pt has fdifficulties to stay focused and concentrate) - Suicidal Ideation Suicidal Ideation: No - Homicidal Ideation Homicidal Ideation: No Goal/Treatment Plan - Goal/Treatment Plan Need for Continued Stay: Remain at risks for inpatient hospitalization, Severe depression anxiety, Discharge may exacerbated symptoms, Severe functional impairment Progress Toward Problem(s) and Goals/Treatment Plan: 1. Cymbalta 30mg po bid for mood, anxiety, and pain 2. Ativan 1 mg tid for anxiety and withdrawal 3. Wellbutrin XL 150 daily for depression 4. Gabapentin was d/c 5. Seroquel 100 mg qhs for mood and sleep 6. Geodon 20 mg q8hrs prn for anxiety/agitation- patient has not required 7. Ambien 10 mg qhs prn for sleep- requires daily 8. Neurology consult for headache, confusion- signed off - Flexeril once - Sumatriptan 100 mg 3x/day - ESR 13, CRP 5.1 (wnl)- r/o temporal arteritis Milieu and group therapy Family involvement ()- tentative family meeting next 02/15 consult for discharge planning Pt was educated about risk/benefits and alternatives of medications, coping strategies (safety plan, suicide prevention), relapse prevention, importance of follow up with psychiatrist and therapist, stay away from drugs/alcohol/smoking Estimated Date of D/C: 02/16/18
[2018-02-14] MEDS: Pantoprazole 20 mg EC Tab PO SCH (07:45)
[2018-02-14] MEDS: buPROPion 150 mg/24 Hours XL Tab PO SCH (09:06)
--- NOTE | 2018-02-14 15:08 | PCM.PYCHPN ---
Psychiatric Progress Note - Psychiatric Progress Note Patient seen today, length of contact: 30 min Patient Chief Complaint: "I feel dizzy, I don't know how describe it, dizziness is dizziness" Problems Identified/Issues Discussed: Suicide/ homicide prevention, past psychiatric h/o, current psychiatric symptoms , medical problems, risk/benefits and alternatives of medications, medications compliance, coping strategies, substance abuse h/o, relapse prevention, importance of follow up with psychiatrist and therapist, discharge plan. Medical Problems: see HPI Diagnostic Results: Lab Results 02/05/18 12:35: POC Glucose (mg/dL) 97 02/05/18 07:40: ESR 13 02/04/18 11:15: C-Reactive Protein 5.10 02/04/18 06:40: RPR Nonreactive 02/04/18 06:40: TSH 3rd Generation 2.23 02/04/18 06:40: Fasting Glucose 89, Triglycerides 163 H, Cholesterol 265 H, LDL Cholesterol Direct 170 H, HDL Cholesterol 39 Vital Signs Temp Pulse Resp BP Pulse Ox 02/10/18 13:05 97.4 F L 02/10/18 07:11 97.7 F 55 L 20 91/56 L 02/09/18 16:00 56 L 126/83 02/09/18 07:13 97.8 F 64 20 111/71 02/08/18 16:00 68 123/78 02/08/18 07:04 97.9 F 64 18 115/77 02/07/18 07:43 97.5 F L 69 20 111/58 L 02/06/18 16:14 81 114/74 02/06/18 07:51 97.9 F 77 20 93/61 L 02/06/18 07:47 97.9 F 77 20 02/05/18 16:00 66 118/81 02/05/18 06:46 98.0 F 67 20 102/58 L 02/04/18 16:00 73 125/79 02/04/18 07:05 97.7 F 75 20 117/80 02/03/18 20:00 98.4 F 80 18 147/100 H 97 02/03/18 19:34 80 18 145/84 99 02/03/18 18:45 97.4 F L 81 17 152/98 H 97 Temp Pulse Resp BP Pulse Ox 98.2 F 56 L 20 102/64 97 02/12/18 07:25 02/12/18 07:25 02/12/18 07:25 02/12/18 07:25 02/03/18 20:00 Temp Pulse Resp BP Pulse Ox 97.9 F 55 L 19 134/81 97 02/13/18 07:06 02/13/18 07:06 02/13/18 07:06 02/13/18 07:06 02/03/18 20:00 DSM 5 Symptoms Update: Shirley Schumacher is 52 y/o [place] female with a questionable history of mental illness, self-reported history of anxiety with agoraphobia, who came to the hospital with her reporting having feelings of depression, loneliness, inability to function, worsening of anxiety. 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 Patient is seen in her room, pt presented the same way, multiple nonspecific complaints "dizziness, hard to explain, numbness, tingling, heaviness in my head , numbness comes and goes". She speaks with a soft, low tone voice. She has a very flat affect, but some positive changes with hygiene,took a shower, pt was observed participating in groups. ppatient denied thoughts of harming herself or others but reported that she feels hopeless. "I am afraid that I will never get better" as per staff pt is more visible in the unit. The patient is compliant with her medications and is tolerating them well without any side effects AIMS 0, no EPS. Impression: Rule out addiction to benzodiazepines and hypnotics Rule out major depressive disorder Rule out panic disorder with agoraphobia Rule out borderline personality disorder Rule out fibromyalgia Medication Change: No (Wellbutrin was given as xl) Medical Record Reviewed: Yes Mental Status Examination - Cognitive Function Orientation: Person, Place, Situation, Time Memory: Intact Attention: Poor (some improvement) Concentration: Poor (some improvement) Association: WNL Fund of Knowledge: Poor - Mood Mood: Depressed (some improvement), Anxious - Affect Affect: Constricted - Speech Speech: Soft - Formal Thought Process Formal Thought Process: Loosening of associations, Circumstantial, Other (pt has fdifficulties to stay focused and concentrate) - Suicidal Ideation Suicidal Ideation: No - Homicidal Ideation Homicidal Ideation: No Goal/Treatment Plan - Goal/Treatment Plan Need for Continued Stay: Remain at risks for inpatient hospitalization, Severe depression anxiety, Discharge may exacerbated symptoms, Severe functional impairment Progress Toward Problem(s) and Goals/Treatment Plan: 1. Cymbalta 30mg po bid for mood, anxiety, and pain 2. Ativan 1 mg tid for anxiety and withdrawal 3. Wellbutrin XL 150 daily for depression 4. Gabapentin was d/c 5. Seroquel 100 mg qhs for mood and sleep 6. Geodon 20 mg q8hrs prn for anxiety/agitation- patient has not required 7. Ambien 10 mg qhs prn for sleep- requires daily 8. Neurology consult for headache, confusion- signed off - Flexeril once - Sumatriptan 100 mg 3x/day - ESR 13, CRP 5.1 (wnl)- r/o temporal arteritis Milieu and group therapy Family involvement ()- tentative family meeting next 02/15 consult for discharge planning Pt was educated about risk/benefits and alternatives of medications, coping strategies (safety plan, suicide prevention), relapse prevention, importance of follow up with psychiatrist and therapist, stay away from drugs/alcohol/smoking Estimated Date of D/C: 02/16/18
[2018-02-15] MEDS: Pantoprazole 20 mg EC Tab PO SCH (05:51)
[2018-02-15] MEDS: buPROPion 150 mg/24 Hours XL Tab PO SCH (08:55)
--- NOTE | 2018-02-15 13:51 | PCM.PYCHPN ---
Psychiatric Progress Note - Psychiatric Progress Note Patient seen today, length of contact: 30 min Patient Chief Complaint: "I have inner restlessness, a lot of thoughts, but I feel numb" Problems Identified/Issues Discussed: Suicide/ homicide prevention, past psychiatric h/o, current psychiatric symptoms , medical problems, risk/benefits and alternatives of medications, medications compliance, coping strategies, substance abuse h/o, relapse prevention, importance of follow up with psychiatrist and therapist, discharge plan. Medical Problems: h/o psoriatic arthritis but it is ? chronic fatigue will call for medical consult Diagnostic Results: Lab Results 02/05/18 12:35: POC Glucose (mg/dL) 97 02/05/18 07:40: ESR 13 02/04/18 11:15: C-Reactive Protein 5.10 02/04/18 06:40: RPR Nonreactive 02/04/18 06:40: TSH 3rd Generation 2.23 02/04/18 06:40: Fasting Glucose 89, Triglycerides 163 H, Cholesterol 265 H, LDL Cholesterol Direct 170 H, HDL Cholesterol 39 Vital Signs Temp Pulse Resp BP Pulse Ox 02/10/18 13:05 97.4 F L 02/10/18 07:11 97.7 F 55 L 20 91/56 L 02/09/18 16:00 56 L 126/83 02/09/18 07:13 97.8 F 64 20 111/71 02/08/18 16:00 68 123/78 02/08/18 07:04 97.9 F 64 18 115/77 02/07/18 07:43 97.5 F L 69 20 111/58 L 02/06/18 16:14 81 114/74 02/06/18 07:51 97.9 F 77 20 93/61 L 02/06/18 07:47 97.9 F 77 20 02/05/18 16:00 66 118/81 02/05/18 06:46 98.0 F 67 20 102/58 L 02/04/18 16:00 73 125/79 02/04/18 07:05 97.7 F 75 20 117/80 02/03/18 20:00 98.4 F 80 18 147/100 H 97 02/03/18 19:34 80 18 145/84 99 02/03/18 18:45 97.4 F L 81 17 152/98 H 97 Temp Pulse Resp BP Pulse Ox 98.2 F 56 L 20 102/64 97 02/12/18 07:25 02/12/18 07:25 02/12/18 07:25 02/12/18 07:25 02/03/18 20:00 Temp Pulse Resp BP Pulse Ox 97.9 F 55 L 19 134/81 97 02/13/18 07:06 02/13/18 07:06 02/13/18 07:06 02/13/18 07:06 02/03/18 20:00 Temp Pulse Resp BP Pulse Ox 97.7 F 68 20 133/80 97 02/15/18 07:26 02/15/18 07:26 02/15/18 07:26 02/15/18 07:26 02/03/18 20:00 DSM 5 Symptoms Update: Shirley Schumacher is 52 y/o Citizen Of [place] female with a questionable history of mental illness, self-reported history of anxiety with agoraphobia, who came to the hospital with her reporting having feelings of depression, loneliness, inability to function, worsening of anxiety. 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 pt was seen at the treatment team meeting with ANANTH, medical student, sports marketing internship , this ticket writer and pt's came for the family meeting. acknowledged that pt is doing "little better", seems to be supportive but was concentrating on his own medical issues and job and financial stress. pt's said that family is overwhelmed because he lost his job, son does not want to be involved in care of the pt, pt herself has a lot of issues with "exhaustion and fear", prior to come to the hospital pt was isolating herself, was not functioning, pt was brought in because "she was screaming and demanding to go to the hospital". as per pt is not ready for d/c yet and family is moving to a new apartment within next couple of days. pt herself was able to concentrate better, was able to provide h/o two previous hospitalizations first took place three years ago at [place] [facility], second about a year ago at [place], all of the admissions "were only for two to three days, then they let me go", pt said that initially she became very anxious, then depression, last year pt had thought that life is not worth living. She has a very flat affect, but some positive changes with hygiene,took a shower , pt was observed participating in groups. ativan will be increased, seroquel increased, wellbutrin increased. ppatient denied thoughts of harming herself or others but reported that she feels hopeless. "I am afraid that I will never get better" as per staff pt is more visible in the unit. The patient is compliant with her medications and is tolerating them well without any side effects AIMS 0, no EPS. Impression: Rule out addiction to benzodiazepines and hypnotics Rule out major depressive disorder Rule out panic disorder with agoraphobia Rule out borderline personality disorder Rule out fibromyalgia Medication Change: Yes (wellbutrin increased, ativan increased, seroquel incrased) Medical Record Reviewed: Yes Consults ordered or reviewed: patient was seen by neurologist, consultation appreciated will be seen by medical team Mental Status Examination - Cognitive Function Orientation: Person, Place, Situation, Time Memory: Intact Attention: Poor (some improvement) Concentration: Poor (some improvement) Association: WNL Fund of Knowledge: Poor - Mood Mood: Depressed (some improvement), Anxious - Affect Affect: Constricted - Speech Speech: Soft - Formal Thought Process Formal Thought Process: Hallucinations (I have thosw thoughts in my head, screams, but I feel numb. ), Loosening of associations, Circumstantial, Other ( pt has fdifficulties to stay focused and concentrate) - Suicidal Ideation Suicidal Ideation: No - Homicidal Ideation Homicidal Ideation: No Goal/Treatment Plan - Goal/Treatment Plan Need for Continued Stay: Remain at risks for inpatient hospitalization, Severe depression anxiety, Discharge may exacerbated symptoms, Severe functional impairment Progress Toward Problem(s) and Goals/Treatment Plan: 1. Cymbalta 30mg po bid for mood, anxiety, and pain 2. Ativan 2 mg bid for anxiety and withdrawal 3. Wellbutrin XL 300 daily for depression 4. Gabapentin was d/c 5. Seroquel 100 mg qhs for mood and sleep 6. Geodon 20 mg q8hrs prn for anxiety/agitation- patient has not required 7. Ambien 10 mg qhs prn for sleep- requires daily 8. Neurology consult for headache, confusion- signed off - Flexeril once - Sumatriptan 100 mg 3x/day - ESR 13, CRP 5.1 (wnl)- r/o temporal arteritis Milieu and group therapy Family involvement ()- tentative family meeting next 02/15 SW consult for discharge planning Pt was educated about risk/benefits and alternatives of medications, coping strategies (safety plan, suicide prevention), relapse prevention, importance of follow up with psychiatrist and therapist, stay away from drugs/alcohol/smoking Estimated Date of D/C: 02/18/18
--- NOTE | 2018-02-15 15:28 | CP.PCM.CON ---
<Eldon Narayan - Last Filed: 02/15/18 15:36> History of Present Illness - History of Present Illness History of Present Illness: Eldon Narayan D.O PGY-1, Internal Medicine consult note for Dr. Reynolds CC: Joint pain HPI: Patient is a 52 year old female with past medical history of fibromyalgia, chronic migraine, depression, anxiety who is admitted to inpatient psychiatric unit for depression. Patient admits to having constant joint pains in both her hips, knees, and elbows. She describes the pain to be constant and has been experiencing the pain for many years. She states that the pain is worse with walking and change in weather. Denies weight loss, fevers, chills, chest pain, shortness of breath, abdominal pain, nausea, vomiting, diarrhea, and urinary symptoms. 12 point ROS benign other than mentioned in HPI PMH: Depression, anxiety, migraines, fibromyalgia, questionable psoriatic arthritis, trigeminal neuralgia. Surgical hx: cholecystectomy, ectopic surgery, sinus surgery Family hx: unknown Allergies: haldol Social: Denies tobacco, alcohol, and drug use. Lives at home with her . 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 Home medications: as per patient, ambien, ativan, clonazepam, imitrex Review of Systems - Review of Systems Review of Systems: 12 point ROS benign other than mentioned in HPI Past Patient History - Infectious Disease Hx of Infectious Diseases: None - Past Social History Smoking Status: Never Smoked Alcohol: None Drugs: Denies - MUSCULOSKELETAL/RHEUMATOLOGICAL Hx Arthritis: Yes - PSYCHIATRIC Hx Substance Use: Yes (medical marijuana) - ANESTHESIA Hx Anesthesia: No Meds Allergies/Adverse Reactions: Allergies Allergy/AdvReac Type Severity Reaction Status Date / Time haloperidol [From Haldol] AdvReac FATIGUE Verified 02/03/18 20:30 - Medications Medications: Current Medications Acetaminophen (Tylenol 325mg Tab) 650 mg PO Q4 PRN PRN Reason: Pain, moderate (4-7) Last Admin: 02/13/18 09:39 Dose: 650 mg Al Hydrox/Mg Hydrox/Simethicone (Maalox Plus 30 Ml) 30 ml PO DAILY PRN PRN Reason: Upset Stomach Bupropion HCl (Wellbutrin Xl) 300 mg PO DAILY [facility] Duloxetine HCl (Cymbalta) 30 mg PO BID [facility] Last Admin: 02/15/18 08:53 Dose: 30 mg Ibuprofen (Motrin Tab) 600 mg PO TID PRN PRN Reason: Pain, severe (8-10) Last Admin: 02/15/18 14:51 Dose: 600 mg Lorazepam (Ativan) 2 mg PO BID [facility] PRN Reason: Protocol Magnesium Hydroxide (Milk Of Magnesia) 30 ml PO DAILY PRN PRN Reason: Constipation Pantoprazole Sodium (Protonix Ec Tab) 20 mg PO 0600 [facility] Last Admin: 02/15/18 05:51 Dose: 20 mg Quetiapine Fumarate (Seroquel) 100 mg PO AMHS [facility] PRN Reason: Protocol Last Admin: 02/15/18 10:40 Dose: 100 mg Sumatriptan Succinate (Imitrex Tab) 100 mg PO MWF [facility] Last Admin: 02/14/18 09:05 Dose: 100 mg Ziprasidone (Geodon Cap) 20 mg PO Q8 PRN; Protocol PRN Reason: Anxiety Ziprasidone (Geodon Inj) 20 mg IM Q8 PRN; Protocol PRN Reason: severe agitation Zolpidem Tartrate (Ambien) 10 mg PO HS PRN; Protocol PRN Reason: Insomnia Last Admin: 02/14/18 21:49 Dose: 10 mg Physical Exam - Constitutional Appears: No Acute Distress - Head Exam Head Exam: ATRAUMATIC, NORMAL INSPECTION - Eye Exam Eye Exam: Normal appearance - ENT Exam ENT Exam: Mucous Membranes Moist - Respiratory Exam Respiratory Exam: Clear to Auscultation Bilateral. absent: Rales, Rhonchi, Wheezes - Cardiovascular Exam Cardiovascular Exam: REGULAR RHYTHM, +S1, +S2. absent: Gallop, Rubs, Systolic Murmur - GI/Abdominal Exam GI & Abdominal Exam: Normal Bowel Sounds, Soft. absent: Tenderness - Extremities Exam Additional comments: No fingernail pitting, no swan neck or boutinneire deformity, no ulnar deviation , no heberden or perla nodes - Neurological Exam Neurological exam: Alert, Normal Gait, Oriented x3 - Psychiatric Exam Psychiatric exam: Flat Affect - Skin Skin Exam: Dry, Normal Color, Warm Additional comments: no rashes, redness, or lesions seen; No scaling lesions noted on flexor surface or throughout body Results - Vital Signs Recent Vital Signs: Last Vital Signs Temp 97.7 F 02/15/18 07:26 Pulse 68 02/15/18 07:26 Resp 20 02/15/18 07:26 BP 133/80 02/15/18 07:26 Pulse Ox 97 02/03/18 20:00 Assessment & Plan - Assessment and Plan (Free Text) Assessment: Patient is a 52 year old female with past medical history of fibromyalgia, chronic migraine, depression, anxiety who is admitted to inpatient psychiatric unit for depression. Patient complaining of joint pains in bilateral hips, knees , and elbows. Plan: Chronic joint pain - most likely arthritic joint pain vs fibromyalgia - no rashes, joint swelling, or skin redness were appreciated on physical exam - patient is ambulating with a normal gait - c/w Acetaminophen 650mg PO Q4 PRN for moderate pain and Ibuprofen 600mg PO TID PRN for severe pain - Labwork reviewed from facility prior to admission - within normal limits - UDS- negative History of depression and anxiety - Management as per psych Thank you for the opportunity to participate in the care of this patient. Medicine team will sign off at this time. Please reconsult if needed. Patient seen, case reviewed, and plan approved by attending physician, Dr. Reynolds. - Date & Time Date: 02/15/18 Time: 15:37 <Latrell Reynolds - Last Filed: 02/16/18 13:33> Meds - Medications Medications: Current Medications Acetaminophen (Tylenol 325mg Tab) 650 mg PO Q4 PRN PRN Reason: Pain, moderate (4-7) Last Admin: 02/13/18 09:39 Dose: 650 mg Al Hydrox/Mg Hydrox/Simethicone (Maalox Plus 30 Ml) 30 ml PO DAILY PRN PRN Reason: Upset Stomach Bupropion HCl (Wellbutrin Xl) 300 mg PO DAILY [facility] Last Admin: 02/16/18 09:17 Dose: 300 mg Duloxetine HCl (Cymbalta) 30 mg PO BID [facility] Last Admin: 02/16/18 09:17 Dose: 30 mg Ibuprofen (Motrin Tab) 600 mg PO TID PRN PRN Reason: Pain, severe (8-10) Last Admin: 02/15/18 21:27 Dose: 600 mg Lorazepam (Ativan) 2 mg PO BID [facility] PRN Reason: Protocol Last Admin: 02/16/18 09:18 Dose: 2 mg Magnesium Hydroxide (Milk Of Magnesia) 30 ml PO DAILY PRN PRN Reason: Constipation Pantoprazole Sodium (Protonix Ec Tab) 20 mg PO 0600 [facility] Last Admin: 02/16/18 08:11 Dose: 20 mg Quetiapine Fumarate (Seroquel) 100 mg PO AMHS [facility] PRN Reason: Protocol Last Admin: 02/16/18 09:17 Dose: 100 mg Sumatriptan Succinate (Imitrex Tab) 100 mg PO MWF [facility] Last Admin: 02/16/18 09:17 Dose: 100 mg Ziprasidone (Geodon Cap) 20 mg PO Q8 PRN; Protocol PRN Reason: Anxiety Ziprasidone (Geodon Inj) 20 mg IM Q8 PRN; Protocol PRN Reason: severe agitation Zolpidem Tartrate (Ambien) 10 mg PO HS PRN; Protocol PRN Reason: Insomnia Last Admin: 02/15/18 21:17 Dose: 10 mg Results - Vital Signs Recent Vital Signs: Last Vital Signs Temp 97.5 F L 02/16/18 07:32 Pulse 70 02/16/18 07:32 Resp 20 02/16/18 07:32 BP 142/86 02/16/18 07:32 Pulse Ox 97 02/03/18 20:00 Attending/Attestation - Attestation I have personally seen and examined this patient.: Yes I have fully participated in the care of the patient.: Yes I have reviewed all pertinent clinical information: Yes Notes (Text): 02/16/18 13:27 attending note; The patient seen and examined with resident. patient was previously examined by resident. patient refused examination by me. Patient is a 52 year old female with past medical history of fibromyalgia, chronic migraine, depression, anxiety who is admitted to inpatient psychiatric unit for depression. Currently patient is complaining of joint pain. patient is complaining generalized pain all over including joints and muscles consistent with fibromyalgia. Patient is requesting pain medication. patient is also complaining of migraine. Seen by neurologist. Currently on Imitrex. No significant skin lesion on joint abnormality. No effusions erythema over joints. Patient gave history of psoriatic arthritis. Currently no active disease. Continue Tylenol or Motrin when necessary. labs reviewed. continue treatment per psychiatrist. Patient is medically stable. Please reconsult as needed. 02/16/18 13:32
[2018-02-16] MEDS: Pantoprazole 20 mg EC Tab PO SCH (08:11)
[2018-02-16] MEDS: buPROPion 300 mg/24 Hours XL Tab PO SCH (09:17)
--- NOTE | 2018-02-16 11:42 | PCM.PYCHPN ---
<Caity Contreras - Last Filed: 02/16/18 14:14> Psychiatric Progress Note - Psychiatric Progress Note Patient seen today, length of contact: 30 min Patient Chief Complaint: I have a lot of pain. I just dont feel connected. Problems Identified/Issues Discussed: Suicide/ homicide prevention, past psychiatric h/o, current psychiatric symptoms , medical problems, risk/benefits and alternatives of medications, medications compliance, coping strategies, substance abuse h/o, relapse prevention, importance of follow up with psychiatrist and therapist, discharge plan. Medical Problems: Patient has many somatic complaints, including hip pain, headache, and GI upset. ?psoriatic arthritis h/o trigeminal neuralgia Diagnostic Results: Vital Signs Temp Pulse Resp BP Pulse Ox 02/07/18 07:43 97.5 F L 69 20 111/58 L 02/06/18 16:14 81 114/74 02/06/18 07:51 97.9 F 77 20 93/61 L 02/06/18 07:47 97.9 F 77 20 02/05/18 16:00 66 118/81 02/05/18 06:46 98.0 F 67 20 102/58 L 02/04/18 16:00 73 125/79 02/04/18 07:05 97.7 F 75 20 117/80 02/03/18 20:00 98.4 F 80 18 147/100 H 97 02/03/18 19:34 80 18 145/84 99 02/03/18 18:45 97.4 F L 81 17 152/98 H 97 Lab Results 02/05/18 12:35: POC Glucose (mg/dL) 97 02/05/18 07:40: ESR 13 02/04/18 11:15: C-Reactive Protein 5.10 02/04/18 06:40: RPR Nonreactive 02/04/18 06:40: TSH 3rd Generation 2.23 02/04/18 06:40: Fasting Glucose 89, Triglycerides 163 H, Cholesterol 265 H, LDL Cholesterol Direct 170 H, HDL Cholesterol 39 Temp Pulse Resp BP Pulse Ox 97.8 F 64 20 111/71 97 02/09/18 07:13 02/09/18 07:13 02/09/18 07:13 02/09/18 07:13 02/03/18 20:00 Temp Pulse Resp BP Pulse Ox 97.5 F L 70 20 142/86 97 02/16/18 07:32 02/16/18 07:32 02/16/18 07:32 02/16/18 07:32 02/03/18 20:00 DSM 5 Symptoms Update: Shirley Schumacher is 52 y/o [place] female with a questionable history of mental illness, self-reported history of anxiety with agoraphobia, who came to the hospital with her reporting having feelings of depression, loneliness, inability to function, worsening of anxiety. 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 Patient was seen in her room. She continues to have a very flat affect but her speech is louder and more coherent. She also continues to have multiple nonspecific physical and mental complaints. She is intermittently tearful. She does have improved hygiene from earlier during her hospitalization- she has showered and combed hair and is dressed in casual clothing. Hospitalist was consulted regarding the patients complaint of pain and questionable history of psoriatic arthritis. They did not find any evidence of this, and believe the patient has fibromyalgia. Family meeting took place yesterday with the patient and her . The appears to be supportive, and he is working on stabilization their home situation before the patient is discharged on Wednesday. ( they are currently moving to a new home) Family therapy was discussed and the agreed that this is a good idea to pursue following discharge. The patient denies SI and HI and can contract for safety. She has good sleep and appetite. She is isolating in her bed most of the day, but staff reports she is more visible on the unit than earlier in her admission. She was encouraged to attend groups and occupy her mind by reading. She continues to request an increase of Ativan, and nursing staff reports she is frequently asking for her dose over an hour before it is due to be administered. The patient is compliant with her medications and is tolerating them well without significant side effects. Impression: Rule out addiction to benzodiazepines and hypnotics Rule out major depressive disorder Rule out panic disorder with agoraphobia Rule out borderline personality disorder Rule out fibromyalgia Medication Change: No (changes yesterday) Medical Record Reviewed: Yes Consults ordered or reviewed: neurology, medicine Mental Status Examination - Cognitive Function Orientation: Person, Place, Situation, Time Memory: Intact Attention: Poor (but improved) Concentration: Poor (but improved) Association: WNL Fund of Knowledge: Poor - Mood Mood: Depressed (some improvement), Anxious - Affect Affect: Flat - Speech Speech: Soft - Formal Thought Process Formal Thought Process: Hallucinations (I have thosw thoughts in my head, screams, but I feel numb. ), Loosening of associations, Circumstantial, Perservation (physical complaints) - Suicidal Ideation Suicidal Ideation: No - Homicidal Ideation Homicidal Ideation: No Goal/Treatment Plan - Goal/Treatment Plan Need for Continued Stay: Remain at risks for inpatient hospitalization, Severe depression anxiety, Discharge may exacerbated symptoms, Severe functional impairment Progress Toward Problem(s) and Goals/Treatment Plan: Cymbalta 30 mg bdid daily for mood, anxiety, and pain Ativan 2 mg bid for anxiety and withdrawal Wellbutrin 300 mg daily for depression Gabapentin 300 mg tid for mood and anxiety Seroquel 100 mg qhs for mood and sleep- decreased due to patient reported increased appetite Geodon 20 mg q8hrs prn for anxiety/agitation- patient has not required Ambien 5 mg qhs prn for sleep- requires daily Neurology consult for headache, confusion- signed off - Flexeril once - Sumatriptan 100 mg 3x/day - ESR 13, CRP 5.1 (wnl)- r/o temporal arteritis Medicine consult for pain, h/o psoriatic arthritis Milieu and group therapy Family involvement () SW consult for discharge planning Estimated Date of D/C: 02/18/18 <Darling Quintero - Last Filed: 02/16/18 14:53> Psychiatric Progress Note - Psychiatric Progress Note DSM 5 Symptoms Update: pt still has vague complaints about the symptoms "I am like trapped in my body, but a not of thoughts and screams inside". pt was not going to groups, but did not mind to be brought there pt's goal is "to feel normal", pt said that last time it was 4months ago, when she was able to read and listen a radio. pt has master's degree in [place], this rewriter offered t[place] book, was encouraged to try to read. for pt it is always "yes, but I cannot concentrate. I feel better, but I was feeling worse yesterday" Goal/Treatment Plan - Goal/Treatment Plan Progress Toward Problem(s) and Goals/Treatment Plan: agree with assessment and plan
[2018-02-17] MEDS: buPROPion 300 mg/24 Hours XL Tab PO SCH (09:05)
[2018-02-17] MEDS: Pantoprazole 20 mg EC Tab PO SCH (09:06)
--- NOTE | 2018-02-17 10:28 | PCM.PYCHPN ---
<Caity Contreras - Last Filed: 02/17/18 10:19> Psychiatric Progress Note - Psychiatric Progress Note Patient seen today, length of contact: 30 min Patient Chief Complaint: I did not sleep well. The pain kept waking me up. I only read one page of the book. I have the depression so I cannot read. Problems Identified/Issues Discussed: Suicide/ homicide prevention, past psychiatric h/o, current psychiatric symptoms , medical problems, risk/benefits and alternatives of medications, medications compliance, coping strategies, substance abuse h/o, relapse prevention, importance of follow up with psychiatrist and therapist, discharge plan. Medical Problems: Patient has many somatic complaints, including hip pain, headache, and GI upset. ?psoriatic arthritis h/o trigeminal neuralgia Diagnostic Results: Vital Signs Temp Pulse Resp BP Pulse Ox 02/07/18 07:43 97.5 F L 69 20 111/58 L 02/06/18 16:14 81 114/74 02/06/18 07:51 97.9 F 77 20 93/61 L 02/06/18 07:47 97.9 F 77 20 02/05/18 16:00 66 118/81 02/05/18 06:46 98.0 F 67 20 102/58 L 02/04/18 16:00 73 125/79 02/04/18 07:05 97.7 F 75 20 117/80 02/03/18 20:00 98.4 F 80 18 147/100 H 97 02/03/18 19:34 80 18 145/84 99 02/03/18 18:45 97.4 F L 81 17 152/98 H 97 Lab Results 02/05/18 12:35: POC Glucose (mg/dL) 97 02/05/18 07:40: ESR 13 02/04/18 11:15: C-Reactive Protein 5.10 02/04/18 06:40: RPR Nonreactive 02/04/18 06:40: TSH 3rd Generation 2.23 02/04/18 06:40: Fasting Glucose 89, Triglycerides 163 H, Cholesterol 265 H, LDL Cholesterol Direct 170 H, HDL Cholesterol 39 Temp Pulse Resp BP Pulse Ox 97.8 F 64 20 111/71 97 02/09/18 07:13 02/09/18 07:13 02/09/18 07:13 02/09/18 07:13 02/03/18 20:00 Temp Pulse Resp BP Pulse Ox 97.5 F L 70 20 142/86 97 02/16/18 07:32 02/16/18 07:32 02/16/18 07:32 02/16/18 07:32 02/03/18 20:00 Temp Pulse Resp BP Pulse Ox 97.9 F 74 20 146/92 H 97 02/17/18 07:02 02/17/18 07:02 02/17/18 07:02 02/17/18 07:02 02/03/18 20:00 DSM 5 Symptoms Update: Shirley Schumacher is 52 y/o [place] female with a questionable history of mental illness, self-reported history of anxiety with agoraphobia, who came to the hospital with her reporting having feelings of depression, loneliness, inability to function, worsening of anxiety. 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 Patient was seen this morning by the nurses station. She continues to have a very flat affect but her speech is louder and more coherent. She also continues to have multiple nonspecific physical and mental complaints. She complains she did not sleep due to pain, but nursing documentation indicates patient slept. Patient was provided with [employer] book to read yesterday (patient has Masters degree in Cymro). Patient states that she could only read one page due to depression. She does not seem to be receptive to suggestions to help her feel better. The patient is observed at some groups, but she sits outside of the group/[place] and does not participate. The patient has shown minimal improvement despite medications and therapy over the past 2 weeks. Additionally , her complaints are nonspecific and are not indicative of a mood or anxiety disorder. Additionally, she was seen and examined by an [employer] consultant and neurologist who did not find anything physically wrong. It is likely the patient s symptoms are mostly due to personality traits. She would benefit from continued therapy as an outpatient. Plan is to discharge the patient home tomorrow with follow-up at a day program. The patient denies SI and HI and can contract for safety. She has good sleep and appetite. The patient is compliant with her medications and is tolerating them well without significant side effects. Impression: Rule out addiction to benzodiazepines and hypnotics Rule out borderline personality disorder Rule out fibromyalgia Rule out major depressive disorder Rule out panic disorder with agoraphobia Medication Change: No Medical Record Reviewed: Yes Consults ordered or reviewed: neurology, medicine Mental Status Examination - Cognitive Function Orientation: Person, Place, Situation, Time Memory: Intact Attention: Poor (but improved) Concentration: Poor (but improved) Association: WNL Fund of Knowledge: Poor Decription of patient's judgement and insights: fair insight and judgment - Mood Mood: Depressed (some improvement), Anxious - Affect Affect: Flat (incongruent with described anxious mood) - Speech Speech: Soft - Formal Thought Process Formal Thought Process: Hallucinations (patient describes voices in head that do not make sentences), Loosening of associations (vagues descriptions of symptoms), Circumstantial, Perservation (physical complaints) - Suicidal Ideation Suicidal Ideation: No - Homicidal Ideation Homicidal Ideation: No Goal/Treatment Plan - Goal/Treatment Plan Need for Continued Stay: Remain at risks for inpatient hospitalization, Discharge may exacerbated symptoms, Severe functional impairment Progress Toward Problem(s) and Goals/Treatment Plan: Cymbalta 30 mg bid daily for mood, anxiety, and pain Ativan 2 mg bid for anxiety and withdrawal Wellbutrin 300 mg daily for depression Gabapentin 300 mg tid for mood and anxiety Seroquel 100 mg qhs for mood and sleep Ambien 5 mg qhs prn for sleep- requires daily Neurology consult for headache, confusion- signed off - Sumatriptan 100 mg 3x/day Medicine consult for pain, h/o psoriatic arthritis- signed off Milieu and group therapy Family involvement () SW consult for discharge planning- discharge tomorrow to home with day program Estimated Date of D/C: 02/18/18 - Smoking Cessation Smoking Cessation Initiated: No Reason for not providing: denies tobacco use <Darling Quintero - Last Filed: 02/17/18 16:01> Psychiatric Progress Note - Psychiatric Progress Note DSM 5 Symptoms Update: agree with assessment and plan discussed ECT in the future pt tolerates meds well, no side effects d/c scheduled for tomorrow Goal/Treatment Plan - Goal/Treatment Plan Progress Toward Problem(s) and Goals/Treatment Plan: d/c tomorrow
[2018-02-18 06:39] VITALS: BP 128/78; PULSE 72; RESP 16; TEMP 98.1
--- NOTE | 2018-02-18 08:56 | PCM.PYCHDC ---
<Caity Contreras - Last Filed: 02/18/18 10:23> Mental Status Examination - Mental Status Examination Orientation: Person, Place, Situation, Time Memory: Intact Mood: Depressed (improved), Anxious (incongruent with affect, patient appears calm) Affect: Flat (improved from admission) Speech: Soft (louder than earlier in admission) Attention: Poor (much improved) Concentration: Poor (much improved) Association: Loose (speech is more coherant and relevant than on admission) Fund of Knowledge: Poor Formal Thought Process: Loosening of associations (inability to describe symptoms coherently), Circumstantial (and tangential), Perservation ( perseverates on symptoms) Description of patient's judgement and insight: Pt has mildly improved insight into mental and medical illness as well as drug addiction. Pt was compliant with medications and unit rules and regulations. Pt was going to some groups with passive participation. She was calm, cooperative, socially appropriate. No behavioral incidents, agitation, aggression or violence. Psychotic Thoughts and Behaviors: Pt denied v/a/t hallucinations, denied paranoid ideations, pt does not appear to be psychotic, and thought process is fairly goal directed. Suicidal Ideation: No Current Homicidal Ideation?: No Plan: Pt adamantly denied thoughts of harming self or others. Denied intent or plan. Discharge Summary - Discharge Note Reason for Hospitalization: Patient was transferred from [facility] for evaluation of depression as well as anxiety with agoraphobia. Psychiatric History (includes Medical, Family, Personal Hx): see HPI Laboratory Data: Vital Signs Temp Pulse Resp BP Pulse Ox 02/18/18 06:38 98.1 F 72 16 128/78 02/17/18 16:00 104 H 118/75 02/17/18 07:02 97.9 F 74 20 146/92 H 02/16/18 15:00 80 120/80 02/16/18 07:32 97.5 F L 70 20 142/86 02/15/18 16:00 79 129/82 02/15/18 07:26 97.7 F 68 20 133/80 02/14/18 16:13 88 139/99 H 02/14/18 07:19 97.8 F 64 19 115/71 02/13/18 16:00 70 138/69 02/13/18 07:06 97.9 F 55 L 19 134/81 02/12/18 16:00 64 123/80 02/12/18 07:25 98.2 F 56 L 20 102/64 02/11/18 15:56 56 L 123/84 02/11/18 07:19 98 F 64 20 96/62 L 02/10/18 16:00 59 L 99/59 L 02/10/18 13:05 97.4 F L 02/10/18 07:11 97.7 F 55 L 20 91/56 L 02/09/18 16:00 56 L 126/83 02/09/18 07:13 97.8 F 64 20 111/71 02/08/18 16:00 68 123/78 02/08/18 07:04 97.9 F 64 18 115/77 02/07/18 07:43 97.5 F L 69 20 111/58 L 02/06/18 16:14 81 114/74 02/06/18 07:51 97.9 F 77 20 93/61 L 02/06/18 07:47 97.9 F 77 20 02/05/18 16:00 66 118/81 02/05/18 06:46 98.0 F 67 20 102/58 L 02/04/18 16:00 73 125/79 02/04/18 07:05 97.7 F 75 20 117/80 02/03/18 20:00 98.4 F 80 18 147/100 H 97 02/03/18 19:34 80 18 145/84 99 02/03/18 18:45 97.4 F L 81 17 152/98 H 97 Lab Results 02/05/18 12:35: POC Glucose (mg/dL) 97 02/05/18 07:40: ESR 13 02/04/18 11:15: C-Reactive Protein 5.10 02/04/18 06:40: RPR Nonreactive 02/04/18 06:40: TSH 3rd Generation 2.23 02/04/18 06:40: Fasting Glucose 89, Triglycerides 163 H, Cholesterol 265 H, LDL Cholesterol Direct 170 H, HDL Cholesterol 39 Consultations:: List each consultation separately and include: 1. Reason for request. 2. Findings. 3. Follow-up Consultations: Patient was seen by neurologist for headaches. She was prescribed Imitrex MWF. Advised to f/u with neurologist upon discharge. Patient was also seen by warehouse stock clerk for body aches. Nothing acutely problematic, no organic source of pain symptoms. Patient was advised to f/u with PMD upon discharge. Patient was medically cleared prior to discharge. Summary of Hospital Course include:: 1. Description of specific treatment plan utilized for patients during their course of treatmen. 2. Summarize the time- course for resolution of acute symptoms and/or regressed behaviors. 3. Describe issues identified and worked on during hospitalization. 4. Describe medication utilized. 5. Describe medical problems identified and treated. 6. Reassessment of suicide risk Summary of Hospital Course: Patient is 52-year-old female, questionable history of mental illness , self reported history of anxiety with agoraphobia. Patient came to the hospital with her reporting having feeling of depression, loneliness, inability to function, worsening of anxiety, patient most likely also is addicted to benzodiazepines as well as Ambien, transfer was uneventful. On initial evaluation, patient presented to be older than her chronological age. Patient is poor, vague, unreliable historian, overly dramatic, telling multiple symptoms of the same time, difficult to to stay focused and concentrate , patient also has difficult to to express herself. Personal hygiene is acceptable but patient seems to be careless about her appearance, ADLs fair. Patient reported that she started to feel anxious and started to suffer from anxiety and panic attacks 2 years ago after her son was involved in motor vehicle accident. Patient reported that she started to have panic attacks and later on agoraphobia which led patient to stay in the home, then feeling hopeless and helpless as well as depressed. Patient reported that she has multiple pain in her body, patient reported that pain shoulder pain back pain she pain, feeling that she is burden for her family. Patient reported that her primary care physician was prescribing her Klonopin, Ambien. She reported taking more Klonopin than prescribed. Patient also reported that she was seeing specialist who prescribed her medical marijuana. Patient reported that her is supportive but due to her symptoms he started to have "seizures, said that he is stressed out because of me". Patient denied any thoughts of killing herself or others, but reported to feel hopeless and helpless. Past psychiatric history: Patient has 1 previous hospitalization, for similar symptoms. Patient denied history of suicidal attempts. Patient denied using any drugs, denied smoking, denied drinking alcohol. Family history: patient denied family history of mental illness. In regards of mental status examination, patient had mocha 27 out of 30. Most likely patient has borderline personality disorder traits. Patient denied hearing voices, denied seeing things, denied paranoid ideations. Resident called patient pharmacy, which reported that patient has tendency of misusing and abusing benzodiazepines as well as Ambien and patient and her are constantly asking for refills. Medication list was faxed over, reviewed. Pharmacy name [facility]. Ambien 10 mg filled on 01/24/2018 Lorazepam 1 mg every 8 hours as needed In the past, patient was on clonazepam, Prozac, Cymbalta, Risperdal, gabapentin. A family meeting was held with the patients during her admission (4 days before discharge). Pts acknowledged that pt is doing "little better", seems to be supportive but was concentrating on his own medical issues and job and financial stress. Pt's said that family is overwhelmed because he lost his job, son does not want to be involved in care of the pt, pt herself has a lot of issues with "exhaustion and fear". Prior to come to the hospital pt was isolating herself, was not functioning. Pt was brought in because "she was screaming and demanding to go to the hospital". As per , pt is not ready for d/c yet and family is moving to a new apartment within next couple of days. Pt herself was able to concentrate better, was able to provide h/o two previous hospitalizations first took place three years ago at [place], second about a year ago at [place]. All of the admissions "were only for two to three days, then they let me go". Pt said that initially she became very anxious, then depressed. Last year pt had thought that life is not worth living. At one point during her hospitalization, nursing indicated that pt was cheeking medications. When asked the reason, she said she wanted to split her dosage and save half for later. RN explained the procedure to the pt and told her she needed to talk to the dr about medication adjustments. Pt verbalized understanding. This was later discussed with the patient, but she denied wanting any changes to her medication dosages or administration times. Patient showed some improvement after about 3 days. She had improved hygiene ( hair was washed and combed), and she was dressed in casual clothing. She continued to appear disheveled. Her speech became more coherent. She continued to have multiple nonspecific physical and mental complaints. She complained she had poor sleep due to pain, but nursing documentation indicates patient slept. Patient required encouragement to leave her room. During the beginning of her admission, she would isolate in bed all day. Later, she was observed out of her room more, but only participated in groups passively. The patient is observed at some groups, but she sits outside of the group/[place] and does not participate. She does not seem to be receptive to suggestions to help her feel better. The patient has shown minimal improvement despite medications and therapy over the past 2 weeks. Additionally, her complaints are nonspecific and are not indicative of a mood or anxiety disorder. Additionally, she was seen and examined by an warehouse stock clerk and neurologist who did not find anything physically wrong. It is likely the patients symptoms are mostly due to personality traits. She would benefit from continued therapy as an outpatient. Patient was educated about risk/benefits and alternatives of medications, coping strategies (safety plan, suicide prevention), relapse prevention, importance of follow up with psychiatrist and therapist, stay away from drugs/ alcohol/smoking. The patient was stabilized on the following medications. Doses were titrated up slowly when appropriate. Risks, benefits, and alternatives were discussed with the patient. The patient was in agreement with the plan. Cymbalta 30 mg bid daily for mood, anxiety, and pain Ativan 2 mg bid for anxiety and withdrawal Wellbutrin 300 mg daily for depression Gabapentin 300 mg tid for mood and anxiety Seroquel 100 mg qhs for mood and sleep Ambien 5 mg qhs prn for sleep The patient was compliant with all other medications and tolerated them well without side effects. AIMS 0, no EPS. Overall, pt improved, pt's affect became somewhat brighter, pt was less depressed, has some realistic future-oriented plans. Pt also does not appear to be psychotic or anxious. She appears mildly depressed. Pt was socially appropriate, no behavioral issues. Pts insight improved somewhat as well. At the time of the discharge, pt endorsed some depression, but improved from admission. She denied psychosis, denied thoughts of harming self or others. Pt is not in imminent danger to self or others. Pt will f/u at [facility] partial program. Information about follow up appointment, time and address provided to the pt, and it is patient responsibility to follow up with outpatient clinic, PMD, and specialists (see SW note for more detailed information). In case pt will need to obtain results of studies pending at discharge, pt was provided with contact information of Psychiatric Inpatient unit as well as Medical Record Department . Naltrexone treatment not indicated at this time Counseling about alcohol/smoking/drug cessation provided AA meetings information provided Pt was provided with prescriptions for all of medications (please see medication reconciliation form). Pt was educated about safety plan in case of worsening of symptoms or in case of suicidal or homicidal ideation- call 911 or go to the nearest ER. Also was educated to take meds as prescribed and stay away from drugs. Pt verbalized understanding. - Final Diagnosis (DSM 5) Condition upon Discharge: STABLE Disposition: HOME/ ROUTINE Follow-up Treatment Plan: At the time of the discharge, pt endorsed some depression, but improved from admission. She denied psychosis, denied thoughts of harming self or others. Pt is not in imminent danger to self or others. Pt will f/u at [facility] partial program. Information about follow up appointment, time and address provided to the pt, and it is patient responsibility to follow up with outpatient clinic, PMD, and specialists (see SW note for more detailed information). In case pt will need to obtain results of studies pending at discharge, pt was provided with contact information of Psychiatric Inpatient unit as well as Medical Record Department . Naltrexone treatment not indicated at this time Counseling about alcohol/smoking/drug cessation provided AA meetings information provided Pt was provided with prescriptions for all of medications (please see medication reconciliation form). Pt was educated about safety plan in case of worsening of symptoms or in case of suicidal or homicidal ideation- call 911 or go to the nearest ER. Also was educated to take meds as prescribed and stay away from drugs. Pt verbalized understanding. Prescriptions/Medication Reconciliation: buPROPion XL [Wellbutrin XL] 300 mg PO DAILY #14 t24 DULoxetine [Cymbalta] 30 mg PO BID #30 ecc LORazepam [Ativan] 2 mg PO BID #30 tab Pantoprazole [Protonix EC Tab] 20 mg PO 0600 #7 ect QUEtiapine [Seroquel] 100 mg PO AMHS #30 tab SUMAtriptan succinate [Imitrex Tab] 100 mg PO MWF #7 tab Zolpidem [Ambien] 10 mg PO HS PRN #14 tab PRN Reason: Insomnia - Smoking Cessation Smoking Cessation Medication prescribed: No Reason for not providing: Patient denies tobacco use. - Antipsychotic Medications Pt discharged on 2 or more routine antipsychotic medications: No <Deena Minor - Last Filed: 02/18/18 11:23> Discharge Summary - Discharge Note Laboratory Data: Laboratory Tests 02/04/18 02/04/18 02/04/18 06:40 06:40 06:40 ESR POC Glucose (mg/dL) Fasting Glucose 89 C-Reactive Protein Triglycerides 163 H Cholesterol 265 H LDL Cholesterol Direct 170 H HDL Cholesterol 39 TSH 3rd Generation 2.23 RPR Nonreactive 02/04/18 02/05/18 02/05/18 11:15 07:40 12:35 ESR 13 POC Glucose (mg/dL) 97 Fasting Glucose C-Reactive Protein 5.10 Triglycerides Cholesterol LDL Cholesterol Direct HDL Cholesterol TSH 3rd Generation RPR Consultations:: List each consultation separately and include: 1. Reason for request. 2. Findings. 3. Follow-up Summary of Hospital Course include:: 1. Description of specific treatment plan utilized for patients during their course of treatmen. 2. Summarize the time- course for resolution of acute symptoms and/or regressed behaviors. 3. Describe issues identified and worked on during hospitalization. 4. Describe medication utilized. 5. Describe medical problems identified and treated. 6. Reassessment of suicide risk - Final Diagnosis (DSM 5) DSM 5: Rule out addiction to benzodiazepines and hypnotics Rule out borderline personality disorder Rule out fibromyalgia Rule out major depressive disorder Rule out panic disorder with agoraphobia Addendum Addendum: I met with patient at bedside this morning. She is alert and oriented x3. Denies any new discomfort. Only medication concern/complaint is that of dry mouth. She is not hallucination and she denies perceptual disturbance. Discharge note was reviewed by this provider who is in agreement. Patient appears much improved since admission. 02/18/18 11:20
[2018-02-18] MEDS: buPROPion 300 mg/24 Hours XL Tab PO SCH (09:36)
[2018-02-18] MEDS: Pantoprazole 20 mg EC Tab PO SCH (09:42)
== END 2018-02-18 19:35 | disposition home or self-care (01) | DRG 881 ==
LOC: ED 18:10 → ERH 18:51 → PSYC 19:43
PROVIDERS: ADMIT Psychiatry & Neurology Psychiatry; ATTEND Psychiatry & Neurology Psychiatry
DX: F32.9 Major depressive disorder, single episode, unspecified (principal); F60.3 Borderline personality disorder; G43.909 Migraine, unspecified, not intractable, without status migrainosus; M79.7 Fibromyalgia; F40.01 Agoraphobia with panic disorder; G47.00 Insomnia, unspecified

== ENCOUNTER 2018-04-24 11:44 | Inpatient (IN) | payer OTHER ==
[2018-04-24 11:44] VITALS: BMI 26.6
[2018-04-24 12:25] LABS: URINE BILIRUBIN NEGATIVE (NEGATIVE); URINE BLOOD TRACE-INTACT (NEGATIVE); URINE GLUCOSE (UA) NEGATIVE (NEGATIVE); URINE LEUKOCYTE ESTERASE SMALL Leu/uL (NEGATIVE); URINE PROTEIN NEGATIVE mg/dL (<30 mg/dL); URINE UROBILINOGEN 0.2 E.U./dL (<1 E.U./dL)
[2018-04-24 12:26] LABS: URINE APPEARANCE CLEAR (CLEAR); URINE COLOR LIGHT YELLOW (YELLOW)
[2018-04-24 12:30] LABS: URINE BACTERIA MANY (NEG); URINE COARSE GRANULAR CAST TRACE /hpf (0-2)
[2018-04-24 12:44] LABS: BENZODIAZEPINES, UR NEGATIVE (NEGATIVE)
[2018-04-24 12:46] LABS: BASO # 0.02 K/mm3 (0.0-2.0); BASO % 0.4 % (0.0-3.0); EOS # 0.1 (0.0-0.7); EOS % 1.1 % (1.5-5.0); GRAN # 3.69 (1.4-6.5); GRAN % 66.3 % (50.0-68.0); HEMOGLOBIN 12.8 g/dL (12.0-16.0); LYMPH # 1.5 (1.2-3.4); MEAN CELL VOLUME 86.4 fl (80.0-105.0); MEAN CORPUSCULAR HGB CONC 33.5 g/dl (31.0-37.0); MEAN PLATELET VOLUME 9.1 fl (7.0-11.0); MONO # 0.3 (0.1-0.6); MONO % 5.2 % (1.0-6.0); RBC 4.42 10^6/uL (3.5-6.1); RED CELL DISTRIBUTION WIDTH 13.9 % (11.5-14.5); WHITE BLOOD COUNT 5.6 10^3/ul (4.5-11.0)
[2018-04-24 12:47] LABS: BARBITURATES, UR NEGATIVE (NEGATIVE); OPIATES, UR NEGATIVE (NEGATIVE); PHENCYCLIDINE, UR NEGATIVE (NEGATIVE)
[2018-04-24 12:55] LABS: ACETAMINOPHEN < 10.0 ug/ml (10.0-20.0); SALICYLATE < 1 mg/dL (2.0-20.0)
[2018-04-24 13:12] LABS: ALB/GLOB RATIO 1.6 (1.1-1.8); ALBUMIN 4.7 g/dL (3.0-4.8); ALT/SGPT 23 U/L (7-56); AST/SGOT 24 U/L (14-36); BLOOD UREA NITROGEN 9 mg/dL (7-21); CALCIUM 10.2 mg/dL (8.4-10.5); GFR NON-AFRICAN AMERICAN > 60
--- NOTE | 2018-04-24 15:42 | ED PDOC ---
Arrival/HPI - General Chief Complaint: Psychiatric Evaluation Time Seen by Provider: 04/24/18 11:51 Historian: Patient - History of Present Illness Narrative History of Present Illness (Text): 04/24/18 15:39 53 year old female, whose past medical history includes anxiety and depression, who presents to the Emergency Department extremely anxious and crying. Patient states she is not taking medication since she ran out. Patient notes associated chronic back and leg pain. Patient denies any fever, chills, chest pain, shortness of breath, nausea, vomiting, diarrhea, back pain, neck pain, headache, dizziness, suicidal ideation, and homicidal ideation, or any other complaints. Time/Duration: Prior to Arrival Symptom Onset: Gradual Symptom Course: Unchanged Activities at Onset: Light Context: Home Past Medical History - Provider Review Nursing Documentation Reviewed: Yes - Infectious Disease Hx of Infectious Diseases: None - Cardiac Hx Cardiac Disorders: No - Pulmonary Hx Respiratory Disorders: No - Neurological Hx Neurological Disorder: No - HEENT Hx HEENT Disorder: No - Renal Hx Renal Disorder: No - Endocrine/Metabolic Hx Endocrine Disorders: No - Hematological/Oncological Hx Blood Disorders: No - Integumentary Hx Dermatological Disorder: No - Musculoskeletal/Rheumatological Hx Musculoskeletal Disorders: Yes Hx Arthritis: Yes - Gastrointestinal Hx Gastrointestinal Disorders: No - Genitourinary/Gynecological Hx Genitourinary Disorders: No - Psychiatric Hx Psychophysiologic Disorder: Yes Hx Depression: Yes Hx Substance Use: Yes (medical marijuana) - Anesthesia Hx Anesthesia: No Family/Social History - Physician Review Nursing Documentation Reviewed: Yes Family/Social History: Unknown Family HX Smoking Status: Never Smoked Hx Alcohol Use: No Hx Substance Use: Yes (medical marijuana) Allergies/Home Meds Allergies/Adverse Reactions: Allergies haloperidol [From Haldol] Adverse Reaction (Verified 04/24/18 15:45) FATIGUE Review of Systems - Physician Review All systems were reviewed & negative as marked: Yes - Review of Systems Constitutional: Normal Eyes: Normal ENT: Normal Respiratory: Normal. absent: SOB, Cough Cardiovascular: Normal. absent: Chest Pain Gastrointestinal: Normal. absent: Abdominal Pain Genitourinary Female: Normal. absent: Dysuria, Frequency, Hematuria Musculoskeletal: Back Pain, Other (Lower extremity pain). absent: Neck Pain Skin: Normal. absent: Rash Neurological: Normal. absent: Headache, Dizziness Endocrine: Normal Hemo/Lymphatic: Normal Psychiatric: Anxiety Physical Exam Vital Signs Reviewed: Yes Vital Signs Temp Pulse Resp BP Pulse Ox 04/24/18 14:00 98 F 75 19 119/59 L 98 04/24/18 11:53 98.1 F 83 18 129/57 L 99 Temperature: Afebrile Blood Pressure: Hypotensive Pulse: Regular Respiratory Rate: Normal Appearance: Positive for: Well-Appearing, Non-Toxic, Comfortable Pain Distress: None Mental Status: Positive for: Alert and Oriented X 3 - Systems Exam Head: Present: Atraumatic, Normocephalic Pupils: Present: PERRL Extroacular Muscles: Present: EOMI Conjunctiva: Present: Normal Mouth: Present: Moist Mucous Membranes. No: Normal Teeth (several teeth missing) Neck: Present: Normal Range of Motion Respiratory/Chest: Present: Clear to Auscultation, Good Air Exchange. No: Resp iratory Distress, Accessory Muscle Use Cardiovascular: Present: Regular Rate and Rhythm, Normal S1, S2. No: Murmurs Abdomen: No: Tenderness, Distention, Peritoneal Signs Back: Present: Normal Inspection Upper Extremity: Present: Normal Inspection. No: Cyanosis, Edema Lower Extremity: Present: Normal Inspection. No: Edema Neurological: Present: GCS=15, CN II-XII Intact, Speech Normal Skin: Present: Warm, Dry, Normal Color. No: Rashes Psychiatric: Present: Alert, Oriented x 3, Normal Insight, Normal Concentration, Other (tearful) Medical Decision Making ED Course and Treatment: 04/24/18 15:45 Impression: 53 year old female presents to the Emergency department extremely anxious and crying. Plan: -- EKG -- Chest X-ray -- Ibuprofen -- Ativan -- Urine Culture -- Reassess and disposition Progress Notes: Pt is medically cleared and accepted by Dr. Minor. - Lab Interpretations Lab Results: 04/24/18 12:35 04/24/18 12:35 Lab Results 04/24/18 12:35: Alcohol, Quantitative < 10 04/24/18 12:35: Salicylates < 1 L, Acetaminophen < 10.0 L 04/24/18 12:35: Sodium 141, Potassium 3.6, Chloride 106, Carbon Dioxide 21, Anion Gap 18, BUN 9, Creatinine 0.6 L, Est GFR ( Amer) > 60, Est GFR (Non-Af Amer) > 60, Random Glucose 101, Calcium 10.2, Total Bilirubin 0.4, AST 24, ALT 23, Alkaline Phosphatase 94, Total Protein 7.7, Albumin 4.7, Globulin 3.0, Albumin/Globulin Ratio 1.6 04/24/18 12:35: WBC 5.6, RBC 4.42, Hgb 12.8, Hct 38.2, MCV 86.4, MCH 29.0, MCHC 33.5, RDW 13.9, Plt Count 276, MPV 9.1, Gran % 66.3, Lymph % (Auto) 27.0, [place] % (Auto) 5.2, Eos % (Auto) 1.1 L, Baso % (Auto) 0.4, Gran # 3.69, Lymph # (Auto) 1.5, [place] # (Auto) 0.3, Eos # (Auto) 0.1, Baso # (Auto) 0.02 04/24/18 12:20: Urine Opiates Screen Negative, Urine Methadone Screen Negative, Ur Barbiturates Screen Negative, Ur Phencyclidine Scrn Negative, Ur Amphetamines Screen Negative, U Benzodiazepines Scrn Negative, U Oth Cocaine Metabols Negative, U Cannabinoids Screen Negative 04/24/18 12:20: Urine Color Light yellow, Urine Appearance Clear, Urine pH 6.0, Ur Specific [place] 1.010, Urine Protein Negative, Urine Glucose (UA) Negative, Urine Ketones Negative, Urine Blood Trace-intact H, Urine Nitrate Negative, Urine Bilirubin Negative, Urine Urobilinogen 0.2, Ur Leukocyte Esterase Small H, Urine RBC 1 - 3, Urine WBC 5 - 10, Ur Epithelial Cells 4 - 5, Urine Bacteria Many, Coarse Granular Casts Trace H - RAD Interpretation Radiology Orders: 04/24/18 12:35 CHEST PORTABLE [RAD] Stat - Medication Orders Current Medication Orders: Discontinued Medications Ibuprofen (Motrin Tab) 600 mg PO STAT STA Stop: 04/24/18 12:37 Last Admin: 04/24/18 12:56 Dose: 600 mg MAR Pain/Vitals Document 04/24/18 12:56 GMI (Rec: 04/24/18 12:57 GMI [id number]) Pain Reassessment Is This A Pain ReAssessment? Yes Sleep Is patient sleeping during reassessment? No Presence of Pain Presence of Pain Yes Pain Scale Used Protocol: PSCALES Pain Scale Used Numeric Location Left, Right or Bilateral Right Upper or Lower Lower Pain Location Body Site LEG Description Intermittent Intensity 5 Pain Behavior Moaning Facial Grimacing Aggravating Factors Changing Position Alleviating Factors Medication Lorazepam (Ativan) 2 mg IM STAT STA; Protocol Stop: 04/24/18 11:54 Last Admin: 04/24/18 11:55 Dose: 2 mg IM Administration Charges Document 04/24/18 11:55 GMI (Rec: 04/24/18 11:55 GMI [id number]) Injection Site MAR Injection Site Right Deltoid Charges for Administration # of IM Administrations 1 - Scribe Statement The provider has reviewed the documentation as recorded by the Scribe Amber Chaudhari All medical record entries made by the Scribe were at my direction and personally dictated by me. I have reviewed the chart and agree that the record accurately reflects my personal performance of the history, physical exam, medical decision making, and the department course for this patient. I have also personally directed, reviewed, and agree with the discharge instructions and disposition. ' Disposition/Present on Arrival - Present on Arrival Any Indicators Present on Arrival: No History of DVT/PE: No History of Uncontrolled Diabetes: No Urinary Catheter: No History of Decub. Ulcer: No History Surgical Site Infection Following: None - Disposition Have Diagnosis and Disposition been Completed?: Yes Diagnosis: MDD (major depressive disorder), Panic disorder with agoraphobia Disposition: HOME/ ROUTINE Disposition Time: 13:30 Condition: STABLE
[2018-04-24 17:21] VITALS: O2SAT 100
--- NOTE | 2018-04-24 18:00 | PCM.BM ---
<Andrés Graham - Last Filed: 04/24/18 17:56> Treatment Plan Problems - Problems identified on initial assessmt PANIC ATTACKS Date Initiated: 04/24/18 Time Initiated: 17:57 Assessment reference: HP, Other Status: Active ANXIETY DISORDER Date Initiated: 04/24/18 Time Initiated: 17:58 Assessment reference: HP, Other Status: Active SLEEP DISORDER Date Initiated: 04/24/18 Time Initiated: 17:59 Assessment reference: HP, Other Status: Active Treatment assets and liabiliti Patient Assests: cooperative, educated, self-reliant, ADL independent, good sup port system, negotiates basic needs, cognitively intact, good interpersonal skills, strong elijah Patient Liabilities: physical pain, medical problems, other - Milieu Protocol Maintain good personal hygiene: daily Encourage regular showers, daily Remind patient to perform daily oral care, daily Assist patient to perform ADL's Maintain personal safety: daily Educate patient to report safety concerns to staff, daily Monitor environment for contraband/sharps Medication safety: Monitor for expected outcome, potential side effects: daily, Assess barriers to learning: daily, Assess readiness for medication education: daily Discharge/Continuing Care - Education Needs Education Needs: Family Medication, Family Diagnosis/Disease Process, Family Coping Skills, Family Community resources, Family Activities of Daily Living, Family Uses of Medical Equipment, Family Health Practices/Safety, Family Personal Hygiene/Grooming, Family Aftercare Safety Plan, Family Other, Patient Medication, Patient Diagnosis/Disease Process, Patient Coping Skills, Patient Community resources, Patient Activities of Daily Living, Patient Uses of Medical Equipment, Patient Health Practices/Safety, Patient Personal Hygiene/Grooming, Patient Aftercare Safety Plan, Patient Other - Discharge Discharge Criteria: Tolerates medication w/o severe side effects, Free of Suicidal thoughts <Darling Quintero - Last Filed: 04/25/18 12:59> - Diagnosis (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, unspecified Status: Acute Interventions: 04/25/18 13:00 Psychoeducation Psychopharmacology/adjustment of medications as needed/ monitoring possible side effects Evaluate pt on daily basis Compliance with medications and follow up appointments Suicide and homicide risk assessment and prevention Relapse prevention Reduction of symptoms Improve functional status Family involvement As outpatient: cognitive behavioral therapy (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
[2018-04-24] MEDS ORDERED: Alum-Mag Hydrox-Simethicone Susp (30 mL) PO PRN (18:07)
[2018-04-24] MEDS ORDERED: Magnesium Hydroxide Susp 30 ml UD PO PRN (18:07)
[2018-04-24] MEDS: Pantoprazole 20 mg EC Tab PO SCH (18:21)
[2018-04-24] MEDS: buPROPion 150 mg/24 Hours XL Tab PO SCH (18:28)
[2018-04-25] MEDS: Pantoprazole 20 mg EC Tab PO SCH (06:46)
[2018-04-25 06:52] VITALS: RESP 20
[2018-04-25 07:52] LABS: BASO # 0.02 K/mm3 (0.0-2.0); BASO % 0.4 % (0.0-3.0); EOS # 0.1 (0.0-0.7); EOS % 1.5 % (1.5-5.0); GRAN # 3.27 (1.4-6.5); LYMPH # 1.1 (1.2-3.4); LYMPH % 23.6 % (22.0-35.0); MEAN CELL VOLUME 86.7 fl (80.0-105.0); MEAN CORPUSCULAR HEMOGLOBIN 28.9 pg (25.0-35.0); MEAN CORPUSCULAR HGB CONC 33.3 g/dl (31.0-37.0); MEAN PLATELET VOLUME 9.2 fl (7.0-11.0); MONO # 0.3 (0.1-0.6); MONO % 5.5 % (1.0-6.0); RBC 4.5 10^6/uL (3.5-6.1); RED CELL DISTRIBUTION WIDTH 13.9 % (11.5-14.5); WHITE BLOOD COUNT 4.7 10^3/ul (4.5-11.0)
[2018-04-25 08:11] LABS: ALB/GLOB RATIO 1.6 (1.1-1.8); ALBUMIN 4.7 g/dL (3.0-4.8); ALT/SGPT 23 U/L (7-56); AST/SGOT 26 U/L (14-36); BLOOD UREA NITROGEN 9 mg/dL (7-21); CALCIUM 10.2 mg/dL (8.4-10.5); GFR NON-AFRICAN AMERICAN > 60
--- NOTE | 2018-04-25 09:29 | CARD ---
APPROVED REPORT Date of service: 04/24/2018 EKG Measurement Heart [id number] <Conclusion> Normal sinus rhythm Early repolarization changes.
[2018-04-25] MEDS: buPROPion 150 mg/24 Hours XL Tab PO SCH (09:58)
--- NOTE | 2018-04-25 12:59 | PCM.PSYCH ---
Initial Psychiatric Evaluation - Initial Psychiatric Evaluation Type of Admission: Voluntary Legal Status: Capacity (pt has capacity to sign consent for treatment) Chief Complaint (in patient's own words): "I do not know, I feel not right, I am very anxious, I need my ativan..." Patient's Reaction to Hospitalization: pt [facility] the way [facility] for depression and anxiety, pt reported being depressed and anxious, inability to function. History of Present Illness and Precipitating Events: 53 year old female, past history includes anxiety and depression, who presents to the Emergency Department extremely anxious and crying. pt has prolonged hospitalization into this facility in January,, pt had very unspecific complaints such as body ache, confusion, pt was not followed up with outpatient psychiatrist saying that she was physically not well, pt came to this facility from the [facility], looking for admission, pt said that she is not taking medication since she ran out of meds. Patient notes associated chronic back and leg pain. pt was admitted by psychiatrist educational guidance counselor, pt requires at least observation, collaterals from family, stabilization. pt was seen at the treatment team meeting today, pt presented with acceptable personal hygiene, looks older than chronological age, fair ADLs. pt seems to be poor and unreliable historian, it takes forever to answer for simple question, some psychomotor retardation. pt was giving very unspecific complaints such as "confused, I don't know, uncontrollable anxiety, I feel like I am not well, I feel a lot of pain in my skin". pt also said that she feels "nauseated and I don't know sick". denied v/a/t hallucinations, denied paranoia. pt said she was feeling better after d/c from this facility last time, at the same time "I was physically ill to go to the appointments", then pt said that she missed her last appointment which was scheduled last week, and pt reported "[place] did not prescribed me ativan". pt was fixated on ativan to be prescribed to her. pt then complaint of the physical pain and pointed on the right side of her body, as per previous record pt was seen by medical team, unspecific pain, which could be related to fibromyalgia. pt also reported "I feel sick and numb in my stomach". PT is currently on Cymbalta and Prozac, prozac will be d/c. pt denied being abused. Pt reports she did not apply for Medicaid, as her had a seizure and was unable to assist patient. pt said she was not taking meds because she was not able to afford it. later on pt was observed next to the nursing station, pt said "I feel very anxious", at the same time pt was trying to sit on the floor, mental health worker assisted pt to go back to her room, pt said "I feel overmedicated". (it is not possible to feel anxious and overmedicated at the same time). as per previous h/o: most likely pt is addicted to benzos and ambien. as per previous admission "patient pharmacy which reported that patient has tendency of misusing and abusing benzodiazepines as well as Ambien, medication least was faxed over, reviewed. [facility] name [facility]. " pt also has h/o seeing specialist who prescribed her medical marijuana. Patient denied any thoughts of killing herself or others, but reported to feel hopeless and helpless. Past psychiatric history: Patient has 2 previous hospitalization, for similar symptoms. Patient denied history of suicidal attempts. Patient denied using any drugs, denied smoking denied drinking alcohol. Family history: patient denied family history of mental illness. as per staff pt had good appetite, no agitation or aggression, c/o not being able to sleep, was asking for ativan, as per staffing clerk was concerned about biju eking meds. 04/25/18 07:30 04/25/18 07:30 Lab Results 04/25/18 07:30: TSH 3rd Generation 1.42 04/25/18 07:30: Sodium 140, Potassium 4.0, Chloride 107, Carbon Dioxide 27, Anion Gap 10, BUN 9, Creatinine 0.6 L, Est GFR ( Amer) > 60, Est GFR (Non-Af Amer) > 60, Random Glucose 93, Calcium 10.2, Total Bilirubin 0.7, AST 26, ALT 23, Alkaline Phosphatase 100, Total Protein 7.6, Albumin 4.7, Globulin 3.0, Albumin/Globulin Ratio 1.6 04/25/18 07:30: WBC 4.7, RBC 4.50, Hgb 13.0, Hct 39.0, MCV 86.7, MCH 28.9, MCHC 33.3, RDW 13.9, Plt Count 265, MPV 9.2, Gran % 69.0 H, Lymph % (Auto) 23.6, [place] % (Auto) 5.5, Eos % (Auto) 1.5, Baso % (Auto) 0.4, Gran # 3.27, Lymph # (Auto) 1.1 L, [place] # (Auto) 0.3, Eos # (Auto) 0.1, Baso # (Auto) 0.02 04/24/18 12:35: Alcohol, Quantitative < 10 04/24/18 12:35: Salicylates < 1 L, Acetaminophen < 10.0 L 04/24/18 12:35: Sodium 141, Potassium 3.6, Chloride 106, Carbon Dioxide 21, Anion Gap 18, BUN 9, Creatinine 0.6 L, Est GFR ( Amer) > 60, Est GFR (Non-Af Amer) > 60, Random Glucose 101, Calcium 10.2, Total Bilirubin 0.4, AST 24, ALT 23, Alkaline Phosphatase 94, Total Protein 7.7, Albumin 4.7, Globulin 3.0, Albumin/Globulin Ratio 1.6 04/24/18 12:35: WBC 5.6, RBC 4.42, Hgb 12.8, Hct 38.2, MCV 86.4, MCH 29.0, MCHC 33.5, RDW 13.9, Plt Count 276, MPV 9.1, Gran % 66.3, Lymph % (Auto) 27.0, [place] % (Auto) 5.2, Eos % (Auto) 1.1 L, Baso % (Auto) 0.4, Gran # 3.69, Lymph # (Auto) 1.5, [place] # (Auto) 0.3, Eos # (Auto) 0.1, Baso # (Auto) 0.02 04/24/18 12:20: Urine Opiates Screen Negative, Urine Methadone Screen Negative, Ur Barbiturates Screen Negative, Ur Phencyclidine Scrn Negative, Ur Amphetamines Screen Negative, U Benzodiazepines Scrn Negative, U Oth Cocaine Metabols Negative, U Cannabinoids Screen Negative 04/24/18 12:20: Urine Color Light yellow, Urine Appearance Clear, Urine pH 6.0, Ur Specific [place] 1.010, Urine Protein Negative, Urine Glucose (UA) Negative, Urine Ketones Negative, Urine Blood Trace-intact H, Urine Nitrate Negative, Urine Bilirubin Negative, Urine Urobilinogen 0.2, Ur Leukocyte Esterase Small H, Urine RBC 1 - 3, Urine WBC 5 - 10, Ur Epithelial Cells 4 - 5, Urine Bacteria Many, Coarse Granular Casts Trace H Vital Signs Temp Pulse Resp BP Pulse Ox 04/25/18 06:52 97.7 F 74 20 118/66 04/24/18 18:11 98.1 F 79 18 160/90 H 04/24/18 17:23 98.2 F 69 19 121/59 L 100 04/24/18 16:00 98 F 65 19 122/53 L 100 04/24/18 14:00 98 F 75 19 119/59 L 98 04/24/18 11:53 98.1 F 83 18 129/57 L 99 Current Medications: Active Medications Generic Name Dose Route Start Last Admin Trade Name Freq PRN Reason Stop Dose Admin Acetaminophen 650 mg 04/24/18 18:07 Tylenol 325mg Tab PO Q4 PRN Pain, moderate (4-7) Al Hydrox/Mg Hydrox/Simethicone 30 ml 04/24/18 18:07 Maalox Plus 30 Ml PO DAILY PRN Upset Stomach Bupropion HCl 150 mg 04/24/18 18:00 04/24/18 18:28 Wellbutrin Xl PO Not Given DAILY ASHLEY Duloxetine HCl 30 mg 04/24/18 18:00 04/24/18 18:28 Cymbalta PO Not Given BID ASHLEY Lorazepam 1 mg 04/24/18 18:00 04/24/18 18:21 Ativan PO 1 mg BID ASHLEY Administration Protocol Magnesium Hydroxide 30 ml 04/24/18 18:07 Milk Of Magnesia PO DAILY PRN Constipation Pantoprazole Sodium 20 mg 04/24/18 18:00 04/25/18 06:46 Protonix Ec Tab PO 20 mg 0600 ASHLEY Administration Quetiapine Fumarate 100 mg 04/24/18 22:00 04/24/18 21:20 Seroquel PO 100 mg HS ASHLEY Administration Protocol Quetiapine Fumarate 50 mg 04/25/18 08:00 Seroquel PO DAILY ASHLEY Protocol Sumatriptan Succinate 100 mg 04/24/18 18:04 04/24/18 18:21 Imitrex Tab PO 100 mg MWF ASHLEY Administration Zolpidem Tartrate 10 mg 04/24/18 22:00 09/30/18 21:24 Ambien PO 10 mg HS PRN Administration Insomnia Protocol Past Psychiatric History - Past Psychiatric History Previous Treatment History: Inpatient Prior Professional Help: see HPI Prior Psychiatric Treatment: see HPI At what hospital: see HPI Duration: see HPI Nature of Treatment: see HPI Explanation of prior treatment: see HPI History of Abuse: see HPI History of ETOH/Drug Use: see HPI History of Family Illness: see HPI Pertinent Medical Hx (Current Medical&Sleep Prob, Allergies): Allergies Allergy/AdvReac Type Severity Reaction Status Date / Time haloperidol [From Haldol] AdvReac FATIGUE Verified 04/24/18 23:14 DULoxetine [Cymbalta] 30 mg PO BID #30 ecc 02/17/18 LORazepam [Ativan] 2 mg PO BID #30 tab 02/17/18 Pantoprazole [Protonix EC Tab] 20 mg PO 0600 #7 ect 02/17/18 QUEtiapine [Seroquel] 100 mg PO AMHS #30 tab 02/17/18 SUMAtriptan succinate [Imitrex Tab] 100 mg PO MWF #7 tab 02/17/18 Zolpidem [Ambien] 10 mg PO HS PRN #14 tab 02/17/18 buPROPion XL [Wellbutrin XL] 300 mg PO DAILY #14 t24 02/17/18 Review of Systems - Review of Systems Systems not reviewed;Unavailable: Acuity of Condition - EENT Eyes: As Per HPI Ears: As Per HPI Nose/Mouth/Throat: As Per HPI - Breasts Breasts: As Per HPI - Cardiovascular Cardiovascular: As Per HPI - Respiratory Respiratory: As Per HPI - Gastrointestinal Gastrointestinal: As Per HPI - Genitourinary Genitourinary: As Per HPI - Reproductive: Female Reproductive:Female: As Per HPI - Menstruation Menstruation: As Per HPI - Musculoskeletal Musculoskeletal: As Par HPI - Integumentary Integumentary: As Per HPI - Neurological Neurological: As Per HPI - Psychiatric Psychiatric: As Per HPI - Endocrine Endocrine: As Per HPI - Hematologic/Lymphatic Hematologic: As Per HPI Mental Status Examination - Personal Presentation Personal Presentation: Looks older than stated age - Affect Affect: Flat - Motor Activity Motor Activity: Psychomotor Retardation - Reliability in Providing Information Reliability in Providing Information: Other (poor/unspecific complaints) - Speech Speech: Other (underproductive, low volume) - Mood Mood: Depressed ("I am depressed and anxious, I am confused"), Anxious - Formal Thought Process Formal Thought Process: No Impairment - Obsessions/Compulsions Obsessions: None Compulsions: None - Cognitive Functions Orientation: Person, Place Sensorium: Alert Attention/Concentration: Easily distracted Abstract Thinking: [place] Estimate of Intelligence: Average Judgement: Intact, as evidence by: Insight regarding need for hospitalization - Risk Risk: Diminished functioning - Strength & Assets Inventory Strength & Assets Inventory: Cooperative, Other (family support, good physical health) - Limitations Limitations: Other (noncompliance) DSM 5 DX - DSM 5 DSM 5 Diagnosis: mood and anxiety nos r/o benzodiazepines addiction - Recommended/Plan of Treatment Treatment Recommendations and Plan of Treatment: Milieu/structure/supportive therapy Medical consult will be called pt c/o pain in her body and joints PT will be called pt had unsteady gait (most likely somatization) SW consultation for discharge plan and social issues Med management collaterals from family DULoxetine 30 mg PO BID for depression/anxiety LORazepam 1mg po bid for anxiety started by QUEtiapine [Seroquel] 100 mg PO hs for mood stabilization SUMAtriptan succinate [Imitrex Tab] 100 mg PO MWF resumed Zolpidem [Ambien] 10 mg PO HS PRN resumed by psychiatrist buPROPion XL d/c as per pt's request Family involvement Follow up on labs Will monitor closely Pt was educated about risk/benefits and alternatives of medications, coping strategies (safety plan, suicide prevention), relapse prevention, importance of follow up with psychiatrist and therapist, stay away from drugs/alcohol/smoking Projected ELOS: 7days Prognosis: guarded Discharge Plan and Discharge Criteria: Pt will be not depressed or manic, will be more hopeful, will be not psychotic or anxious, will be not having thoughts of harming self or others, will be tolerating medications well, will not have major side effects, will be able to function, will not pose threat to self or others. - Smoking Cessation Smoking Cessation Initiated: No Reason for not providing: denies smoking
--- NOTE | 2018-04-25 16:44 | CP.PCM.HP ---
<Sneha Brito - Last Filed: 04/25/18 16:41> History of Present Illness - History of Present Illness History of Present Illness: PGY-1 Sneha Brito H&P for Dr. Santos's service Patient is a 52 year old female with past medical history of fibromyalgia, chronic migraine, depression, anxiety who is admitted to inpatient psychiatric unit for anxiety and depression. Patient complains of headache, diffuse body aches, right hip pain, and left shoulder pain. She reports that she has had the pain for years, but that she has not been able to follow up with her primary care physician. Patient also reported experiencing nausea this morning, however, she was able to tolerate food without vomiting. Patient is a poor historian, providing very limited history. Pt denies evaluation at this time. Very limited physical exam as patient was uncooperative during. PMH: Depression, anxiety, migraines, fibromyalgia, questionable psoriatic arthritis, trigeminal neuralgia. Surgical hx: cholecystectomy, ectopic surgery, sinus surgery Family hx: unknown Allergies: haldol Social: Denies tobacco, alcohol, and drug use. Lives at home with her . 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 Brought to the ED by her sister. Present on Admission - Present on Admission Any Indicators Present on Admission: No Review of Systems - Review of Systems Review of Systems: 12 point ROS limited as patient was unwilling to cooperate because she says this is just a teaching opportunity for residents; She states we are unable to help her. Past Patient History - Infectious Disease Hx of Infectious Diseases: None - Past Social History Smoking Status: Never Smoked - CARDIAC Hx Cardiac Disorders: No - PULMONARY Hx Respiratory Disorders: No - NEUROLOGICAL Hx Neurological Disorder: No - HEENT Hx HEENT Problems: No - RENAL Hx Chronic Kidney Disease: No - ENDOCRINE/METABOLIC Hx Endocrine Disorders: No - HEMATOLOGICAL/ONCOLOGICAL Hx Blood Disorders: No - INTEGUMENTARY Hx Dermatological Problems: No - MUSCULOSKELETAL/RHEUMATOLOGICAL Hx Musculoskeletal Disorders: Yes Hx Arthritis: Yes - GASTROINTESTINAL Hx Gastrointestinal Disorders: Yes Hx Ulcer: Yes - GENITOURINARY/GYNECOLOGICAL Hx Genitourinary Disorders: No - PSYCHIATRIC Hx Anxiety: Yes Hx Depression: Yes Hx Substance Use: No - SURGICAL HISTORY Hx Surgeries: No - ANESTHESIA Hx Anesthesia: No Meds Allergies/Adverse Reactions: Allergies Allergy/AdvReac Type Severity Reaction Status Date / Time haloperidol [From Haldol] AdvReac FATIGUE Verified 04/24/18 23:14 Physical Exam - Constitutional Appears: Non-toxic, No Acute Distress - Head Exam Head Exam: NORMAL INSPECTION, NORMOCEPHALIC - Eye Exam Eye Exam: EOMI, Normal appearance. absent: Nystagmus, Scleral icterus - ENT Exam ENT Exam: Mucous Membranes Moist - Cardiovascular Exam Cardiovascular Exam: REGULAR RHYTHM, +S1, +S2 - GI/Abdominal Exam GI & Abdominal Exam: Normal Bowel Sounds, Soft. absent: Tenderness - Neurological Exam Neurological exam: Alert, Oriented x3 - Psychiatric Exam Psychiatric exam: Anxious - Skin Skin Exam: Intact, Normal Color Results - Vital Signs Recent Vital Signs: Last Vital Signs Temp 97.7 F 04/25/18 06:52 Pulse 84 04/25/18 15:50 Resp 20 04/25/18 06:52 BP 114/74 04/25/18 15:50 Pulse Ox 100 04/24/18 17:23 - Labs Result Diagrams: 04/25/18 07:30 04/25/18 07:30 Labs: Laboratory Results - last 24 hr 04/25/18 04/25/18 04/25/18 07:30 07:30 07:30 WBC 4.7 RBC 4.50 Hgb 13.0 Hct 39.0 MCV 86.7 MCH 28.9 MCHC 33.3 RDW 13.9 Plt Count 265 MPV 9.2 Gran % 69.0 H Lymph % (Auto) 23.6 [place] % (Auto) 5.5 Eos % (Auto) 1.5 Baso % (Auto) 0.4 Gran # 3.27 Lymph # (Auto) 1.1 L [place] # (Auto) 0.3 Eos # (Auto) 0.1 Baso # (Auto) 0.02 Sodium 140 Potassium 4.0 Chloride 107 Carbon Dioxide 27 Anion Gap 10 BUN 9 Creatinine 0.6 L Est GFR ( Amer) > 60 Est GFR (Non-Af Amer) > 60 Random Glucose 93 Calcium 10.2 Total Bilirubin 0.7 AST 26 ALT 23 Alkaline Phosphatase 100 Total Protein 7.6 Albumin 4.7 Globulin 3.0 Albumin/Globulin Ratio 1.6 TSH 3rd Generation 1.42 RPR 04/25/18 07:30 WBC RBC Hgb Hct MCV MCH MCHC RDW Plt Count MPV Gran % Lymph % (Auto) [place] % (Auto) Eos % (Auto) Baso % (Auto) Gran # Lymph # (Auto) [place] # (Auto) Eos # (Auto) Baso # (Auto) Sodium Potassium Chloride Carbon Dioxide Anion Gap BUN Creatinine Est GFR ( Amer) Est GFR (Non-Af Amer) Random Glucose Calcium Total Bilirubin AST ALT Alkaline Phosphatase Total Protein Albumin Globulin Albumin/Globulin Ratio TSH 3rd Generation RPR Nonreactive Assessment & Plan - Assessment and Plan (Free Text) Assessment: Patient is a 52 year old female with past medical history of fibromyalgia, chronic migraine, depression, anxiety who is admitted to inpatient psychiatric unit for anxiety and depression. Medicine was consulted due to many multiple somatic complaints such as shoulder pain, nausea, right knee pain Plan: Joint Pain unspecified Patient complains of pain at different sites; however patient uncooperative with physical exam Patient was encouraged to participate but patient continuously states that we cannot help her Likely secondary to fibromyalgia with vague discomfort all over Tylenol 650mg po q4 prn Motrin 600mg po q6 prn We will sign off on patient as patient's pain can be managed with above listed meds. Please feel free to reconsult if any acute processes. <Mignon Santos - Last Filed: 04/28/18 14:41> Results - Vital Signs Recent Vital Signs: Last Vital Signs Temp 97.8 F 04/28/18 07:24 Pulse 94 H 04/28/18 07:24 Resp 20 04/28/18 07:24 BP 147/98 H 04/28/18 07:24 Pulse Ox 100 04/24/18 17:23 - Labs Result Diagrams: 04/25/18 07:30 04/25/18 07:30 Attending/Attestation - Attestation I have personally seen and examined this patient.: Yes I have fully participated in the care of the patient.: Yes I have reviewed all pertinent clinical information: Yes Notes (Text): 04/28/18 14:39 The patient seen and examined with resident. patient physical examination is limited as she is not cooperative. 52 year old female with past medical history of fibromyalgia, chronic migraine, depression, anxiety who is admitted to inpatient psychiatric unit for depression. Currently patient is complaining of joint pain. patient is complaining generalized pain all over including joints and muscles consistent with fibromyalgia. Patient is requesting pain medication.No significant skin lesion on joint abnormality. No effusions erythema over joints. Continue Tylenol or Motrin when necessary. labs reviewed. continue treatment per psychiatrist. Patient is medically stable. Please re consult as needed.
[2018-04-26] MEDS: Pantoprazole 20 mg EC Tab PO SCH (05:00)
--- NOTE | 2018-04-26 16:23 | PCM.PYCHPN ---
Psychiatric Progress Note - Psychiatric Progress Note Patient seen today, length of contact: 30 minutes Patient Chief Complaint: "lorazepam is only medication which helped him in the past, you have to give that medication to me" Problems Identified/Issues Discussed: Suicide/ homicide prevention, past psychiatric h/o, current psychiatric symptoms, medical problems, risk/benefits and alternatives of medications, medications compliance, coping strategies, substance abuse h/o, relapse prevention, importance of follow up with psychiatrist and therapist, discharge plan. Medical Problems: see HPI Diagnostic Results: 04/25/18 07:30 04/25/18 07:30 Lab Results 04/25/18 07:30: RPR Nonreactive 04/25/18 07:30: TSH 3rd Generation 1.42 04/25/18 07:30: Sodium 140, Potassium 4.0, Chloride 107, Carbon Dioxide 27, Anion Gap 10, BUN 9, Creatinine 0.6 L, Est GFR ( Amer) > 60, Est GFR (Non-Af Amer) > 60, Random Glucose 93, Calcium 10.2, Total Bilirubin 0.7, AST 26, ALT 23, Alkaline Phosphatase 100, Total Protein 7.6, Albumin 4.7, Globulin 3.0, Albumin/Globulin Ratio 1.6 04/25/18 07:30: WBC 4.7, RBC 4.50, Hgb 13.0, Hct 39.0, MCV 86.7, MCH 28.9, MCHC 33.3, RDW 13.9, Plt Count 265, MPV 9.2, Gran % 69.0 H, Lymph % (Auto) 23.6, [place] % (Auto) 5.5, Eos % (Auto) 1.5, Baso % (Auto) 0.4, Gran # 3.27, Lymph # (Auto) 1.1 L, [place] # (Auto) 0.3, Eos # (Auto) 0.1, Baso # (Auto) 0.02 04/24/18 12:35: Alcohol, Quantitative < 10 04/24/18 12:35: Salicylates < 1 L, Acetaminophen < 10.0 L 04/24/18 12:35: Sodium 141, Potassium 3.6, Chloride 106, Carbon Dioxide 21, Anion Gap 18, BUN 9, Creatinine 0.6 L, Est GFR ( Amer) > 60, Est GFR (Non-Af Amer) > 60, Random Glucose 101, Calcium 10.2, Total Bilirubin 0.4, AST 24, ALT 23, Alkaline Phosphatase 94, Total Protein 7.7, Albumin 4.7, Globulin 3.0, Albumin/Globulin Ratio 1.6 04/24/18 12:35: WBC 5.6, RBC 4.42, Hgb 12.8, Hct 38.2, MCV 86.4, MCH 29.0, MCHC 33.5, RDW 13.9, Plt Count 276, MPV 9.1, Gran % 66.3, Lymph % (Auto) 27.0, [place] % (Auto) 5.2, Eos % (Auto) 1.1 L, Baso % (Auto) 0.4, Gran # 3.69, Lymph # (Auto) 1.5, [place] # (Auto) 0.3, Eos # (Auto) 0.1, Baso # (Auto) 0.02 04/24/18 12:20: Urine Opiates Screen Negative, Urine Methadone Screen Negative, Ur Barbiturates Screen Negative, Ur Phencyclidine Scrn Negative, Ur Amphetamines Screen Negative, U Benzodiazepines Scrn Negative, U Oth Cocaine Metabols Negative, U Cannabinoids Screen Negative 04/24/18 12:20: Urine Color Light yellow, Urine Appearance Clear, Urine pH 6.0, Ur Specific [place] 1.010, Urine Protein Negative, Urine Glucose (UA) Negative, Urine Ketones Negative, Urine Blood Trace-intact H, Urine Nitrate Negative, Urine Bilirubin Negative, Urine Urobilinogen 0.2, Ur Leukocyte Esterase Small H, Urine RBC 1 - 3, Urine WBC 5 - 10, Ur Epithelial Cells 4 - 5, Urine Bacteria Many, Coarse Granular Casts Trace H Vital Signs Temp Pulse Resp BP Pulse Ox 04/26/18 07:27 98.1 F 90 20 134/84 04/25/18 15:50 84 114/74 04/25/18 06:52 97.7 F 74 20 118/66 04/24/18 18:11 98.1 F 79 18 160/90 H 04/24/18 17:23 98.2 F 69 19 121/59 L 100 04/24/18 16:00 98 F 65 19 122/53 L 100 04/24/18 14:00 98 F 75 19 119/59 L 98 04/24/18 11:53 98.1 F 83 18 129/57 L 99 DSM 5 Symptoms Update: 53 year old female, past history includes anxiety and depression, who presents to the Emergency Department extremely anxious and crying. pt has prolonged hospitalization into this facility in January,, pt had very unspecific complaints such as body ache, confusion, pt was not followed up with outpatient psychiatrist saying that she was physically not well, pt came to this facility from the [facility], looking for admission, pt said that she is not taking medication since she ran out of meds. Patient notes associated chronic back and leg pain. pt was admitted by psychiatrist application internship, pt requires at least observation, collaterals from family, stabilization. pt was seen that to be manipulative, patient is irritable, demanding to be on Ativan, patient claimed "lorazepam the only medication which helped him in the past", earlier patient tried to throw herself on the floor, did not hurt herself, patient was complaining about uncontrollable anxiety, pt does not present to be anxious, but irritable, angry, but good part that her speech was more productive, pt was able to articulate better. as per school team report, patient was not participating in physical exam, refuse to be examined. Pt had fair appetite and sleep. no psychosis. Pt reluctantly said that she filled meds in her pharmacy, patient wasn't following medication: Ambien 10 mg at the nighttime 5 days supply was given on 04/17/2018 Seroquel 100 mg 5 days supply was given on 04/17/2018 DSM 5 Diagnosis: mood and anxiety nos r/o benzodiazepines addiction Medication Change: Yes (cymbalta is discontinued, Prozac started) Medical Record Reviewed: Yes Consults ordered or reviewed: medical consult appreciated, please see notes for more detailed information Mental Status Examination - Cognitive Function Orientation: Person, Place Memory: Intact Attention: Poor Concentration: Poor Association: WNL Fund of Knowledge: WNL - Mood Mood: Depressed ("I am depressed and anxious, I am confused"), Anxious - Affect Affect: Flat (angry and annoyed) - Formal Thought Process Formal Thought Process: No Impairment - Suicidal Ideation Suicidal Ideation: No - Homicidal Ideation Homicidal Ideation: No Goal/Treatment Plan - Goal/Treatment Plan Need for Continued Stay: Remain at risks for inpatient hospitalization, Severe depression anxiety, Discharge may exacerbated symptoms, Failed transitioning, Severe functional impairment Progress Toward Problem(s) and Goals/Treatment Plan: Milieu/structure/supportive therapy Medical consult will be called pt c/o pain in her body and joints PT will be called pt had unsteady gait (most likely somatization) SW consultation for discharge plan and social issues Med management collaterals from family DULoxetine d/c prozac 10mg po daily for depression and anxiety LORazepam .5mg po bid for anxiety started by QUEtiapine [Seroquel] 50 mg at the morning time [id number] mg PO hs for mood stabilization SUMAtriptan succinate [Imitrex Tab] 100 mg PO MWF resumed Zolpidem [Ambien] 10 mg PO HS PRN resumed by psychiatrist buPROPion XL d/c as per pt's request Family involvement Follow up on labs Will monitor closely Pt was educated about risk/benefits and alternatives of medications, coping strategies (safety plan, suicide prevention), relapse prevention, importance of follow up with psychiatrist and therapist, stay away from drugs/alcohol/smoking Estimated Date of D/C: 04/28/18
[2018-04-27] MEDS: Pantoprazole 20 mg EC Tab PO SCH (05:14)
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
[2018-04-28] MEDS: Pantoprazole 20 mg EC Tab PO SCH (05:59)
[2018-04-28 07:25] VITALS: BP 147/98; PULSE 94; TEMP 97.8
--- NOTE | 2018-04-28 17:10 | PCM.PYCHDC ---
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 Psychotic Thoughts and Behaviors: Pt denied v/a/t hallucinations, denied paranoid ideations, pt does not appear to be psychotic, and thought process is goal directed. Suicidal Ideation: No Current Homicidal Ideation?: No Plan: pt adamantly denied thoughts of harming self or others denied intent or plan. Discharge Summary - Discharge Note Reason for Hospitalization: pt came all the way from [place] for admission to [place] for depression and anxiety, pt reported being depressed and anxious, inability to function. Psychiatric History (includes Medical, Family, Personal Hx): see HPI Laboratory Data: 04/25/18 07:30 04/25/18 07:30 Lab Results 04/25/18 07:30: RPR Nonreactive 04/25/18 07:30: TSH 3rd Generation 1.42 04/25/18 07:30: Sodium 140, Potassium 4.0, Chloride 107, Carbon Dioxide 27, Anion Gap 10, BUN 9, Creatinine 0.6 L, Est GFR ( Amer) > 60, Est GFR (Non-Af Amer) > 60, Random Glucose 93, Calcium 10.2, Total Bilirubin 0.7, AST 26, ALT 23, Alkaline Phosphatase 100, Total Protein 7.6, Albumin 4.7, Globulin 3.0, Albumin/Globulin Ratio 1.6 04/25/18 07:30: WBC 4.7, RBC 4.50, Hgb 13.0, Hct 39.0, MCV 86.7, MCH 28.9, MCHC 33.3, RDW 13.9, Plt Count 265, MPV 9.2, Gran % 69.0 H, Lymph % (Auto) 23.6, [place] % (Auto) 5.5, Eos % (Auto) 1.5, Baso % (Auto) 0.4, Gran # 3.27, Lymph # (Auto) 1.1 L, [place] # (Auto) 0.3, Eos # (Auto) 0.1, Baso # (Auto) 0.02 04/24/18 12:35: Alcohol, Quantitative < 10 04/24/18 12:35: Salicylates < 1 L, Acetaminophen < 10.0 L 04/24/18 12:35: Sodium 141, Potassium 3.6, Chloride 106, Carbon Dioxide 21, Anion Gap 18, BUN 9, Creatinine 0.6 L, Est GFR ( Amer) > 60, Est GFR (Non-Af Amer) > 60, Random Glucose 101, Calcium 10.2, Total Bilirubin 0.4, AST 24, ALT 23, Alkaline Phosphatase 94, Total Protein 7.7, Albumin 4.7, Globulin 3.0, Albumin/Globulin Ratio 1.6 04/24/18 12:35: WBC 5.6, RBC 4.42, Hgb 12.8, Hct 38.2, MCV 86.4, MCH 29.0, MCHC 33.5, RDW 13.9, Plt Count 276, MPV 9.1, Gran % 66.3, Lymph % (Auto) 27.0, [place] % (Auto) 5.2, Eos % (Auto) 1.1 L, Baso % (Auto) 0.4, Gran # 3.69, Lymph # (Auto) 1.5, [place] # (Auto) 0.3, Eos # (Auto) 0.1, Baso # (Auto) 0.02 04/24/18 12:20: Urine Opiates Screen Negative, Urine Methadone Screen Negative, Ur Barbiturates Screen Negative, Ur Phencyclidine Scrn Negative, Ur Amphetamines Screen Negative, U Benzodiazepines Scrn Negative, U Oth Cocaine Metabols Negative, U Cannabinoids Screen Negative 04/24/18 12:20: Urine Color Light yellow, Urine Appearance Clear, Urine pH 6.0, Ur Specific [place] 1.010, Urine Protein Negative, Urine Glucose (UA) Negative, Urine Ketones Negative, Urine Blood Trace-intact H, Urine Nitrate Negative, Urine Bilirubin Negative, Urine Urobilinogen 0.2, Ur Leukocyte Esterase Small H, Urine RBC 1 - 3, Urine WBC 5 - 10, Ur Epithelial Cells 4 - 5, Urine Bacteria Many, Coarse Granular Casts Trace H Vital Signs Temp Pulse Resp BP Pulse Ox 04/28/18 07:24 97.8 F 94 H 20 147/98 H 04/27/18 16:00 119 H 158/109 H 04/27/18 07:31 98.3 F 103 H 20 129/85 04/26/18 16:00 91 H 147/93 H 04/26/18 07:27 98.1 F 90 20 134/84 04/25/18 15:50 84 114/74 04/25/18 06:52 97.7 F 74 20 118/66 04/24/18 18:11 98.1 F 79 18 160/90 H 04/24/18 17:23 98.2 F 69 19 121/59 L 100 04/24/18 16:00 98 F 65 19 122/53 L 100 04/24/18 14:00 98 F 75 19 119/59 L 98 04/24/18 11:53 98.1 F 83 18 129/57 L 99 Consultations:: List each consultation separately and include: 1. Reason for request. 2. Findings. 3. Follow-up Consultations: medical consult appreciated, please see notes for more detailed information Summary of Hospital Course include:: 1. Description of specific treatment plan utilized for patients during their course of treatmen. 2. Summarize the time- course for resolution of acute symptoms and/or regressed behaviors. 3. Describe issues identified and worked on during hospitalization. 4. Describe medication utilized. 5. Describe medical problems identified and treated. 6. Reassessment of suicide risk Summary of Hospital Course: 53 year old female, past history includes anxiety and depression, who presents to the Emergency Department extremely anxious and crying. pt has prolonged hospitalization into this facility in January,, pt had very unspecific complaints such as body ache, confusion, pt was not followed up with outpatient psychiatrist saying that she was physically not well, pt came to this facility from the [place], looking for admission, pt said that she is not taking medication since she ran out of meds. Patient notes associated chronic back and leg pain. 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 during this hospitalization patient presented to be poor and unreliable historian,manipulative, patient was hiding her on Xanax in order to take it, pat ient was providing inconsistent stories, was fixated on benzodiazepines and she wanted to take benzodiazepines only, was cheeking Seroquel as well as other medications what she does not feel helping her. After Ativan was discontinued patient submitted 48 hour notice requested to be discharged Patient might benefit from further hospitalization and medication adjustment but patient is adamant that Ativan and this is the only medication which would help her. Patient also has multiple psychosomatic complaints but refused to have physical exam. patient was offered rehabilitation but patient does not acknowledge that she has addiction to benzodiazepines. 04/25/18 07:30 04/25/18 07:30 Lab Results 04/25/18 07:30: TSH 3rd Generation 1.42 04/25/18 07:30: Sodium 140, Potassium 4.0, Chloride 107, Carbon Dioxide 27, Anion Gap 10, BUN 9, Creatinine 0.6 L, Est GFR ( Amer) > 60, Est GFR (Non-Af Amer) > 60, Random Glucose 93, Calcium 10.2, Total Bilirubin 0.7, AST 26, ALT 23, Alkaline Phosphatase 100, Total Protein 7.6, Albumin 4.7, Globulin 3.0, Albumin/Globulin Ratio 1.6 04/25/18 07:30: WBC 4.7, RBC 4.50, Hgb 13.0, Hct 39.0, MCV 86.7, MCH 28.9, MCHC 33.3, RDW 13.9, Plt Count 265, MPV 9.2, Gran % 69.0 H, Lymph % (Auto) 23.6, [place] % (Auto) 5.5, Eos % (Auto) 1.5, Baso % (Auto) 0.4, Gran # 3.27, Lymph # (Auto) 1.1 L, [place] # (Auto) 0.3, Eos # (Auto) 0.1, Baso # (Auto) 0.02 04/24/18 12:35: Alcohol, Quantitative < 10 04/24/18 12:35: Salicylates < 1 L, Acetaminophen < 10.0 L 04/24/18 12:35: Sodium 141, Potassium 3.6, Chloride 106, Carbon Dioxide 21, Anion Gap 18, BUN 9, Creatinine 0.6 L, Est GFR ( Amer) > 60, Est GFR (Non-Af Amer) > 60, Random Glucose 101, Calcium 10.2, Total Bilirubin 0.4, AST 24, ALT 23, Alkaline Phosphatase 94, Total Protein 7.7, Albumin 4.7, Globulin 3.0, Albumin/Globulin Ratio 1.6 04/24/18 12:35: WBC 5.6, RBC 4.42, Hgb 12.8, Hct 38.2, MCV 86.4, MCH 29.0, MCHC 33.5, RDW 13.9, Plt Count 276, MPV 9.1, Gran % 66.3, Lymph % (Auto) 27.0, [place] % (Auto) 5.2, Eos % (Auto) 1.1 L, Baso % (Auto) 0.4, Gran # 3.69, Lymph # (Auto) 1.5, [place] # (Auto) 0.3, Eos # (Auto) 0.1, Baso # (Auto) 0.02 04/24/18 12:20: Urine Opiates Screen Negative, Urine Methadone Screen Negative, Ur Barbiturates Screen Negative, Ur Phencyclidine Scrn Negative, Ur Amphetamines Screen Negative, U Benzodiazepines Scrn Negative, U Oth Cocaine Metabols Negative, U Cannabinoids Screen Negative 04/24/18 12:20: Urine Color Light yellow, Urine Appearance Clear, Urine pH 6.0, Ur Specific [place] 1.010, Urine Protein Negative, Urine Glucose (UA) Negative, Urine Ketones Negative, Urine Blood Trace-intact H, Urine Nitrate Negative, Urine Bilirubin Negative, Urine Urobilinogen 0.2, Ur Leukocyte Esterase Small H, Urine RBC 1 - 3, Urine WBC 5 - 10, Ur Epithelial Cells 4 - 5, Urine Bacteria Many, Coarse Granular Casts Trace H Vital Signs Temp Pulse Resp BP Pulse Ox 04/25/18 06:52 97.7 F 74 20 118/66 04/24/18 18:11 98.1 F 79 18 160/90 H 04/24/18 17:23 98.2 F 69 19 121/59 L 100 04/24/18 16:00 98 F 65 19 122/53 L 100 04/24/18 14:00 98 F 75 19 119/59 L 98 04/24/18 11:53 98.1 F 83 18 129/57 L 99 patient was unsatisfied with the services, patient wants to be admitted to other hospital, patient has future oriented plans to look for help from other places. Patient has capacity to do so. In case pt will need to obtain results of studies pending at discharge pt was provided with contact information of Psychiatric Inpatient unit [phone] as well as Medical Record Department [phone]. Naltrexone treatment not indicated at this time. Counseling about addiction to benzodiazepines provided, but pt was not receptive. pt was provided with prescriptions for all of medications (please see medication reconciliation form), but pt was interested in Ativan and Ambien ONLY. Pt was educated about safety plan in case of worsening of symptoms or in case of suicidal or homicidal ideation call 911 or go to the nearest ER, also was educated to take meds as prescribed and stay away from drugs, pt verbalized understanding. Based on the above patient is not in any imminent danger to self or others. 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 Patient has capacity to do so. In case pt will need to obtain results of studies pending at discharge pt was provided with contact information of Psychiatric Inpatient unit [phone] as well as Medical Record Department [phone]. Naltrexone treatment not indicated at this time. Counseling about addiction to benzodiazepines provided, but pt was not receptive. pt was provided with prescriptions for all of medications (please see medication reconciliation form), but pt was interested in Ativan and Ambien ONLY. Pt was educated about safety plan in case of worsening of symptoms or in case of suicidal or homicidal ideation call 911 or go to the nearest ER, also was educated to take meds as prescribed and stay away from drugs, pt verbalized understanding. Based on the above patient is not in any imminent danger to self or others. Prescriptions/Medication Reconciliation: FLUoxetine [Prozac] 20 mg PO DAILY #14 cap hydrOXYzine Pamoate [Vistaril] 50 mg PO BID PRN #14 cap PRN Reason: Anxiety Pantoprazole [Protonix EC Tab] 20 mg PO 0600 #7 ect QUEtiapine [Seroquel] 100 mg PO HS #14 tab Quetiapine Fumarate [Seroquel] 50 mg PO DAILY #14 tablet Zolpidem [Ambien] 5 mg PO HS #14 tab - Smoking Cessation Smoking Cessation Medication prescribed: No Reason for not providing: denies smoking - Antipsychotic Medications Pt discharged on 2 or more routine antipsychotic medications: No
== END 2018-04-28 13:54 | disposition left against medical advice (07) | DRG 429 ==
LOC: ED 11:44 → PSYC 15:35 → ERH 16:47 → PSYC 17:28
PROVIDERS: ADMIT Psychiatry & Neurology Psychiatry; ATTEND Psychiatry & Neurology Psychiatry
DX: F06.30 Mood disorder due to known physiological condition, unspecified (principal); F13.10 Sedative, hypnotic or anxiolytic abuse, uncomplicated; F32.9 Major depressive disorder, single episode, unspecified; M79.7 Fibromyalgia; F40.01 Agoraphobia with panic disorder; G43.909 Migraine, unspecified, not intractable, without status migrainosus